=== PATIENT | female | born 1950 | race Caucasian/White ===

== ENCOUNTER → 2017-07-07 | Outpatient (CLI) | payer BC ==
[~2017-07-07] MED LIST: ALPR0.25 PO; ASCO500T16 PO; CALC600T9 PO; CLIN300C10 PO; COEN50CA2 PO; CTP/1 PO; LEVO500T19 PO; LOSA50TA54 PO; MULTTAB58 PO; NIFE60TA55 PO; OMEGCAP2 PO; OXYC1TAB3 PO; VITA400C3 PO
[2017-07-07 11:08] LABS: BLOOD UREA NITROGEN 16 mg/dl (7-18); CALCIUM 9.2 mg/dl (8.5-10.1); CARBON DIOXIDE 28 mmol/L (21-32); GLUCOSE 86 mg/dl (70-99); POTASSIUM 3.4 mmol/L (3.5-5.1); SODIUM 139 mmol/L (136-145)
== END | disposition home or self-care (01) ==
LOC: C.LAB1850 09:48
PROVIDERS: ATTEND Physician Assistant
DX: Z13.9 Encounter for screening, unspecified (principal)

== ENCOUNTER 2025-01-12 19:48 | Inpatient (IN) ==
--- NOTE | 2025-01-12 20:25 | Emergency Department Note ---
Impression & Plan Sepsis, Leg wound, left, Maggot infestation, Acute hyponatremia, Hypokalemia ED Provider Note NAME: MIGUEL BROWN AGE: 74 SEX: Female INFORMANT: Patient ED PROVIDER(S): John Pagan MD CHIEF COMPLAINT: Left leg wound PLAN: Disposition: Admitted Outpatient prescription management: none Referral: None MEDICAL DECISION MAKING: Patient presented because of left leg wound. On initial evaluation she had a maggot infestation. There was fairly significant ulceration/wound to the back of her left leg. Culture was done. Patient had IV established. Blood cultures, lactate and sepsis labs ordered. Patient's blood pressure was adequate. She was found to have a significant elevation of her white blood cell count and mild elevation of her blood lactate. Additional fluids were given. Aggressive fluid resuscitation in light of her normal blood pressure and low sodium was deferred. Repeat lactate showed clearance. Patient was treated with IV Zosyn and daptomycin. Patient had low potassium and this was repleted. Nursing did clean and bandaged the wound removing the infestation. Further evaluation and management in the hospital will be necessary. On reassessment the patient was feeling better. Patient in agreement. [facility], Dr. Slaughter. Patient was evaluated in the ER and admitted for further management Care/management discussed with: electrician manager Level of care consideration(s): After review of the information above and other included data, I feel the patient requires escalation of care to admission Triage Nursing notes: reviewed and agree them. Vital Signs: reviewed and remarkable for tachycardia Additional History obtained from: none Chronic Medical/Social Conditions affecting care: Hypertension Prior/ Outside/ External records reviewed: none Differential Diagnosis: Foreign body, fracture, dislocation, joint compromise, infection, soft tissue injury, tendon injury, vascular compromise, compartment syndrome, as well as other pathologies. Diagnostics, independently interpreted by me: ECG: none Cardiac Monitoring: Cardiac monitoring ordered by me: The patient was placed on continuous cardiac monitoring and observed. It revealed a normal sinus rhythm at 99 beats per minute without ectopy or evidence of dysrhythmia. Medical decision rules: none Imaging studies: CT imaging of the left lower extremity reveals a large ulcerated wound and surrounding inflammatory change. No significant subcutaneous emphysema tracking to suggest a fasciitis. Radiology read is pending at this time. HPI: 74 year old Female arrives for evaluation of left leg wound. This started a few months ago and is worsening. It is located in the posterior aspect of the lower leg. Patient states started off as a blister.. The patient also notes the following associated symptoms, scant bleeding. The patient has been using bandages for relieving factors. Current pain is rated as 7/10. Pt denies LOC, headache, fevers, chills, diaphoresis, visual changes, neck pain, chest pain, breathing difficulties, nausea, vomiting, abdominal pain, back pain, melena, hematochezia, urinary symptoms, numbness, weakness, lymphadenopathy, rash, or other complaints. PAST MEDICAL HISTORY: See Below, hypertension PAST SURGICAL HISTORY: See Below, SOCIAL HISTORY: See Below, non-smoker HOME MEDICATIONS: See Below ALLERGIES: See Below VITALS: See Below PHYSICAL EXAMINATION: GENERAL: Awake, alert, well-appearing, in no distress HENT: Normocephalic, atraumatic. Oropharynx unremarkable. EYES: Normal conjunctiva. Sclera non-icteric. NECK: Inspection normal. Non-tender. Supple. No nuchal rigidity. FROM. No masses. RESPIRATORY: Clear to auscultation. No wheezes. No rales. Normal respiratory effort. CARDIAC: Normal rate. Normal rhythm. No murmurs. No rubs. Extremities warm and well perfused. Pulses equal. No JVD. GI: Soft, non-distended. No tenderness to palpation. No rebound or guarding. No masses. RECTAL: Deferred. MUSCULOSKELETAL: Atraumatic. Chest examination reveals no tenderness. The back is symmetrical on inspection without obvious abnormality. There is no CVA tenderness to palpation. No joint edema. LOWER EXTREMITIES: Calves are equal size bilaterally and non-tender. Right side shows some chronic venous discoloration. There is scarring noted in the back of the right lower extremity. Examination of the left lower extremity reveals a large ulcerated wound with tunneling and maggot infestation present posteriorly. Tender to palpation. NEURO: Normal sensorium. No sensory or motor deficits noted. SKIN: No rash or jaundice noted. PROCEDURES: none CRITICAL CARE: none OBSERVATION NOTE: none Past Med/Surg History Problem List (Updated 01/13/25 @ 01:07 by John Pagan MD) Hypokalemia (Acute) Acute hyponatremia (Acute) Sepsis (Acute) Maggot infestation (Acute) Leg wound, left (Acute) Social History Smoking Status: Never smoker Preferred Language: Italian Feels Safe at Home: Yes Allergies Allergies Allergy/AdvReac Type Severity Reaction Status Date / Time Penicillins Allergy Unknown RASH long Verified 01/12/25 21:16 ago- tolerating Zosyn Home Meds Home Medications Medication Instructions Recorded Confirmed amlodipine 10 mg tablet 10 mg PO DAILY 01/12/25 01/12/25 chlorthalidone 50 mg tablet 50 mg PO DAILY 01/12/25 01/12/25 losartan 100 mg tablet 100 mg PO DAILY 01/12/25 01/12/25 metoprolol succinate 100 mg 100 mg PO DAILY 01/12/25 01/12/25 tablet,extended release 24 hr potassium chloride 20 mEq 20 meq PO BID 01/12/25 01/12/25 tablet,extended release(part/cryst) spironolactone 25 mg tablet 25 mg PO DAILY 01/12/25 01/12/25 Results & Data (ED) Vital Signs Vital Signs - 24 hr 01/12/25 19:49 01/12/25 21:31 01/12/25 21:48 Temperature 36.1 C L Temperature Source Temporal Artery Scan Pulse Rate 111 H 102 H Pulse Rate [Apical] 106 H Pulse Rhythm Regular Pulse Strength Normal Respiratory Rate 18 18 Respiratory Effort / Characteristics Non-Labored Spontaneous Respiratory Depth Normal Respiratory Pattern Regular Blood Pressure 150/74 H Blood Pressure [Left Arm] 125/70 Blood Pressure Mean 99 Blood Pressure Mean [Left Arm] 88 Blood Pressure Position Sitting Pulse Oximetry 99 98 Oxygen Delivery Method Room Air Room Air Sepsis Recent Fever Within 48 Hours No Sepsis New/Unexplained Change in Mental Status N/A Sepsis Action Taken by Nursing No Action Required 01/12/25 23:00 01/13/25 01:00 Temperature Temperature Source Pulse Rate Pulse Rate [Apical] 110 H 99 H Pulse Rhythm Pulse Strength Respiratory Rate 18 18 Respiratory Effort / Characteristics Respiratory Depth Respiratory Pattern Blood Pressure Blood Pressure [Left Arm] 172/81 H 154/91 H Blood Pressure Mean Blood Pressure Mean [Left Arm] 111 112 Blood Pressure Position Pulse Oximetry 98 Oxygen Delivery Method Room Air Sepsis Recent Fever Within 48 Hours Sepsis New/Unexplained Change in Mental Status Sepsis Action Taken by Nursing Laboratory Data 01/12/25 20:33 01/12/25 20:33 Lab Results 01/12/25 01/12/25 01/13/25 Range/Units 20:33 20:50 00:08 WBC 22.51 H (4.8-10.8) K/ul RBC 4.84 (4.20-5.40) M/uL Hgb 14.6 (12.0-16.0) g/dl POC Hgb 15.6 (12.0-16.0) g/dl Hct 41.2 (37.0-47.0) % POC Hct 46 (37-47) % MCV 85.1 (80.0-100.0) fL MCH 30.2 (25.0-34.0) pg MCHC 35.4 (32.0-36.0) g/dL RDW Std Deviation 36.0 L (36.4-46.3) fL RDW Coeff of [place] 11.9 (11.5-14.5) % Plt Count 482 H (130-400) K/uL MPV 8.0 L (9.4-12.4) fL Immature Gran % (Auto) 0.8 % Neut % (Auto) 84.9 % Lymph % (Auto) 7.3 % [place] % (Auto) 6.7 % Eos % (Auto) 0.0 % Baso % (Auto) 0.3 % Neut # (Auto) 19.10 H (1.40-6.50) K/uL Lymph # (Auto) 1.64 (1.20-3.40) K/uL [place] # (Auto) 1.51 H (0.11-0.59) K/uL Eos # (Auto) 0.01 (0.00-0.50) K/uL Baso # (Auto) 0.06 (0.00-0.20) K/uL Immature Gran # (Auto) 0.19 (0.01-0.20) K/uL ESR 58 H (0-30) mm/hr POC Sodium 129 L (135-144) mmol/L Sodium 127 L (136-145) mmol/L POC Potassium 2.8 L (3.3-5.0) mmol/L Potassium 3.0 L (3.5-5.1) mmol/L POC Chloride 92 L (101-112) mmol/L Chloride 91 L (98-107) mmol/L Carbon Dioxide 24 (21-32) mmol/L POC Total CO2 22 L (24-31) mmol/L Anion Gap 12 H (3-11) POC Anion Gap 18.0 (16-25) mmol/L POC BUN 15 (7-18) mg/dl BUN 15 (6-23) mg/dl Creatinine 0.82 (0.6-1.2) mg/dl POC Creatinine 0.8 (0.6-1.3) mg/dl Est Cr Clr Drug Dosing 64.3 ml/min eGFR 75.01 BUN/Creatinine Ratio 18.3 (10-20) Glucose 171 H (70-99(Fasting)) mg/dl POC Glucose (other) 169 H (70-99) mg/dl Lactate 2.6 H* 2.0 (0.4-2.0) mmol/L Calcium 9.6 (8.6-10.3) mg/dl POC Ioniz Calcium [place] 1.09 L (1.12-1.32) mmol/l Magnesium 2.0 (1.7-2.4) mg/dl Total Bilirubin 0.6 (0.2-1.0) mg/dl AST 23 (13-39) U/L ALT 22 (7-52) U/L Alkaline Phosphatase 77 (34-104) U/L C-Reactive Protein 5.35 H (0-0.5) mg/dl Total Protein 7.6 (6.0-8.3) gm/dl Albumin 3.9 (3.4-5.0) gm/dl Globulin 3.7 (2.5-4.0) gm/dl Albumin/Globulin Ratio 1.1 (0.9-2) Procalcitonin 0.24 (0-0.5) ng/ml Administered Medications Sodium Chloride (Nss) 1,000 mls @ 125 mls/hr IV .Q8H CAL Stop: 01/15/25 19:59 Last Admin: 01/12/25 22:33 Dose: 125 mls/hr Documented By: ALBIN Discontinued Medications Sodium Chloride (Nss) 500 mls @ 999 mls/hr IV .Q31M ONE Stop: 01/12/25 20:26 Last Infusion: 01/12/25 23:01 Dose: Infused Documented By: Admin: 01/12/25 21:00 Dose: 999 mls/hr Documented By: STEVE Piperacillin Sod/Tazobactam Sod (Zosyn) 4.5 gm in 100 mls @ 200 mls/hr IV NOW ONE; Protocol Stop: 01/12/25 20:34 Last Infusion: 01/12/25 22:41 Dose: Infused Documented By: Admin: 01/12/25 21:55 Dose: 200 mls/hr Documented By: ALBIN Sodium Chloride (Nss) 1,000 mls @ 999 mls/hr IV .Q1H1M ONE Stop: 01/12/25 21:51 Last Infusion: 01/12/25 22:01 Dose: Infused Documented By: Admin: 01/12/25 21:00 Dose: 999 mls/hr Documented By: STEVE Daptomycin 550 mg/ Syringe 11 mls @ 5.5 mls/min IV NOW ONE; Protocol Stop: 01/12/25 21:06 Last Admin: 01/12/25 23:37 Dose: 5.5 mls/min Documented By: CAITLYN Potassium Chloride (K Joseph / Wtr) 10 meq in 100 mls @ 100 mls/hr IV ONE ONE Stop: 01/12/25 22:32 Last Infusion: 01/12/25 23:34 Dose: Infused Documented By: Admin: 01/12/25 22:31 Dose: 100 mls/hr Documented By: ALBIN Ioversol (Optiray 320 100ml) 93 ml IV ONCE ONE Stop: 01/12/25 21:24 Last Admin: 01/12/25 21:24 Dose: 93 ml Documented By: ANNALISE Potassium Chloride (Potassium Chloride Crtab 20 Meq Tabcr) 60 meq PO NOW STA Stop: 01/12/25 21:46 Last Admin: 01/12/25 22:32 Dose: 60 meq Documented By: ALBIN Discharge Plan Visit Data Chief Complaint: Skin Problem Stated Complaint: SORE ON LT LEG ED Provider: John Pagan Discharge Problem: Sepsis, Leg wound, left, Maggot infestation, Acute hyponatremia, Hypokalemia Patient Disposition: Admitted As Inpatient Condition: Fair Discharge Instructions Interventions: ED Discharge Assessment Last Done: 01/13/25 01:04 Forms Stand Alone Forms: [facility], [facility] Prescriptions Prescriptions: No Action metoprolol succinate 100 mg tablet extended release 24 hr 100 mg PO DAILY chlorthalidone 50 mg tablet 50 mg PO DAILY spironolactone 25 mg tablet 25 mg PO DAILY potassium chloride 20 mEq tablet,ER particles/crystals 20 meq PO BID amlodipine 10 mg tablet 10 mg PO DAILY losartan 100 mg tablet 100 mg PO DAILY Referrals Referrals: Nancy Guadarrama, [Primary Care Provider] -
[2025-01-12 20:46] LABS: Hematocrit (blood only) 41.2 % (37.0-47.0); Hemoglobin 14.6 g/dl (12.0-16.0); Immature Granulocytes # (auto) 0.19 K/uL (0.01-0.20); Immature Granulocytes % (auto) 0.8 %; Mean Corpuscular Hemoglobin 30.2 pg (25.0-34.0); Mean Corpuscular Volume 85.1 fL (80.0-100.0); Platelet Count 482 K/uL (130-400); RDW Standard Deviation 36.0 fL (36.4-46.3); Red Blood Count 4.84 M/uL (4.20-5.40); White Blood Count 22.51 K/ul (4.8-10.8)
[2025-01-12] MEDS: SODIUM CHLORIDE 0.9% 1,000 ML IV ONE (21:00)
[2025-01-12] MEDS: SODIUM CHLORIDE 0.9% 500 ML IV ONE (21:00)
[2025-01-12 21:19] LABS: Alanine Aminotransferase 22.0 U/L (7-52); Albumin Globulin Ratio 1.1 (0.9-2); Alkaline Phosphatase 77.0 U/L (34-104); Anion Gap 12.0 (3-11); Bilirubin,Total 0.6 mg/dl (0.2-1.0); Blood Urea Nitrogen 15.0 mg/dl (6-23); Calcium 9.6 mg/dl (8.6-10.3); Carbon Dioxide 24.0 mmol/L (21-32); Chloride 91.0 mmol/L (98-107); Creatinine Clr Calc Pharmacy 64.3 ml/min; Globulin 3.7 gm/dl (2.5-4.0); Glucose 171.0 mg/dl (70-99(Fasting)); Potassium 3.0 mmol/L (3.5-5.1); Sodium 127.0 mmol/L (136-145); Total Protein 7.6 gm/dl (6.0-8.3)
[2025-01-12] MEDS: OPTIRAY 320 100ml IV ONE (21:24)
[2025-01-12 21:50] LABS: Magnesium 2.0 mg/dl (1.7-2.4)
[2025-01-12] MEDS: PIPERACILLIN/TAZOBACTAM 4.5 GM/100 ML BAG IV ONE (21:55)
[2025-01-12] MEDS: POTASSIUM CHLORIDE / WTR 10 MEQ/100 ML PLCT IV ONE (22:31)
[2025-01-12] MEDS: POTASSIUM CHLORIDE CRTAB 20 MEQ TABCR PO STA (22:32)
[2025-01-12] MEDS: SODIUM CHLORIDE 0.9% 1,000 ML IV SCH (22:33)
[2025-01-12] MEDS: DAPTOmycin 550 MG in SYRINGE 0 ML IV ONE (23:37)
--- NOTE | 2025-01-13 00:19 | History & Physical Report ---
Date of Service January 12, 2025 Assessment & Plan (1) Maggot infestation: Plan: 74-year-old female with past medical history significant for hypertension, resistant hypertension, hypokalemia presents with left leg necrotic wound. Patient says initially she had a Achilles tendon of the left leg and she was using brace. In mid of November she noticed a blister and since then she is not using a brace. She says her pain from her Achilles tendinitis is improved. But last few days she did have pain and having wound in the left lower extremity distal part in the posterior aspect. Seems patient was using bandages at home. As was not getting better she came to the ER. In the ER when the wound was cleaned some maggots were seen. Patient states that after wound was cleaned the pain is much improved. She ambulated in the in the ER for the bathroom. Denies any fevers. No chest pain. No shortness of breath. No headaches. No runny nose or sore throat. No cough. Appetite is okay. No nausea. No abdominal pain. Normal bowel and bladder movements as per patient. Currently resting comfortably and hemodynamically stable. Left leg wound Maggot infestation CT scan: 1. Subcutaneous edema in the calf, greatest posteriorly, consistent wi th cellulitis.2. Cutaneous defect/ulceration posterior lower calf measuring 4 cm transverse by 9 cm craniocaudal. Empiric Dapto and Zosyn N.p.o. IV fluids Surgical consult Hypokalemia Replace Hold chlorthalidone along with potassium supplements Will follow repeat labs Hyponatremia Sodium 127 Holding chlorthalidone Getting fluids Will follow repeat labs Resistant hypertension Continue home amlodipine, losartan, metoprolol succinate and spironolactone Holding chlorthalidone with potassium supplements IV labetalol as needed Will monitor DVT prophylaxis SCDs in the right leg for now Disposition Med/telemetry Full code. (2) Leg wound, left: History of Present Illness Chief Complaint: Left leg necrotic wound Primary Care Provider: Nancy Guadarrama DO 74-year-old female with past medical history significant for hypertension, resistant hypertension, hypokalemia presents with left leg necrotic wound. Patient says initially she had a Achilles tendon of the left leg and she was using brace. In mid of November she noticed a blister and since then she is not using a brace. She says her pain from her Achilles tendinitis is improved. But last few days she did have pain and having wound in the left lower extremity distal part in the posterior aspect. Seems patient was using bandages at home. As was not getting better she came to the ER. In the ER when the wound was cleaned some maggots were seen. Patient states that after wound was cleaned the pain is much improved. She ambulated in the in the ER for the bathroom. Denies any fevers. No chest pain. No shortness of breath. No headaches. No runny nose or sore throat. No cough. Appetite is okay. No nausea. No abdominal pain. Normal bowel and bladder movements as per patient. Currently resting comfortably and hemodynamically stable. Past medical history. As mentioned above Past surgical history. Infection of right calf ankle had skin graft from the right thigh. Social history. No smoking. Alcohol rarely. Family history. Mother had leukemia. Father had diabetes. Allergies Allergy/AdvReac Type Severity Reaction Status Date / Time Penicillins Allergy Unknown RASH long Verified 01/12/25 21:16 ago- tolerating Zosyn Home Medications Medication Instructions Recorded Confirmed Type amlodipine 10 mg tablet 10 mg PO DAILY 01/12/25 01/12/25 History chlorthalidone 50 mg tablet 50 mg PO DAILY 01/12/25 01/12/25 History losartan 100 mg tablet 100 mg PO DAILY 01/12/25 01/12/25 History metoprolol succinate 100 mg 100 mg PO DAILY 01/12/25 01/12/25 History tablet,extended release 24 hr potassium chloride 20 mEq 20 meq PO BID 01/12/25 01/12/25 History tablet,extended release(part/cryst) spironolactone 25 mg tablet 25 mg PO DAILY 01/12/25 01/12/25 History Past Med/Surg History Problem List (Updated 01/13/25 @ 01:07 by John Pagan MD) Hypokalemia (Acute) Acute hyponatremia (Acute) Sepsis (Acute) Maggot infestation (Acute) Leg wound, left (Acute) Social History Smoking Status: Never smoker Hx Alcohol Use: Yes Hx Substance Use: No Preferred Language: Greenlandic Communication Ability: Effective [place] Required: No Beliefs That Will Affect Care: None Current Living Situation: Alone Feels Safe at Home: Yes Assistive Devices: None Review of Systems Review of Systems: All systems reviewed & are unremarkable except as noted in HPI & below Physical Exam Physical Exam: General- Not in distress Head- atraumatic Eyes- PERRL. ENT- oropharynx clear Neck- supple, no JVD. Lungs- clear to auscultation no wheezing or crackles Heart- regular rhythm; no murmur, no gallop. Abdomen- normal bowel sounds, soft, nontender, no distension Extremities- no pretibial edema, Large necrotic wound left distal leg posterior aspect Neuro- alert, oriented PERRL, no facial palsy; no dysarthria; moves extremitie s Results & Data Results & Data Vital Signs (Past 12 Hours) Vital Signs Temp Pulse Pulse Resp BP BP Pulse Ox 01/12/25 23:00 110 H 18 172/81 H 01/12/25 21:48 106 H 18 125/70 98 01/12/25 21:31 102 H 01/12/25 19:49 36.1 C L 111 H 18 150/74 H 99 O2 Del Method 01/12/25 23:00 01/12/25 21:48 Room Air 01/12/25 21:31 01/12/25 19:49 Room Air Diagnostic Findings Laboratory Results WBC 22.51 K/ul (4.8-10.8) H 01/12/25 20:33 RBC 4.84 M/uL (4.20-5.40) 01/12/25 20:33 Hgb 14.6 g/dl (12.0-16.0) 01/12/25 20:33 POC Hgb 15.6 g/dl (12.0-16.0) 01/12/25 20:50 Hct 41.2 % (37.0-47.0) 01/12/25 20: POC Hct 46 % (37-47) 01/12/25 20:50 MCV 85.1 fL (80.0-100.0) 01/12/25 20: MCH 30.2 pg (25.0-34.0) 01/12/25 20: MCHC 35.4 g/dL (32.0-36.0) 01/12/25 20: RDW Std Deviation 36.0 fL (36.4-46.3) L 01/12/25 20: RDW Coeff of [place] 11.9 % (11.5-14.5) 01/12/25: Plt Count 482 K/uL (130-400) H 01/12/25: MPV 8.0 fL (9.4-12.4) L 01/12/25: Immature Gran % (Auto) 0.8 % 01/12/25: Neut % (Auto) 84.9 % 01/12/25: Lymph % (Auto) 7.3 % 01/12/25: [place] % (Auto) 6.7 % 01/12/25: Eos % (Auto) 0.0 % 01/12/25: Baso % (Auto) 0.3 % 01/12/25: Neut # (Auto) 19.10 K/uL (1.40-6.50) H 01/12/25 20: Lymph # (Auto) 1.64 K/uL (1.20-3.40) 01/12/25 20: [place] # (Auto) 1.51 K/uL (0.11-0.59) H 01/12/25 20: Eos # (Auto) 0.01 K/uL (0.00-0.50) 01/12/25: Baso # (Auto) 0.06 K/uL (0.00-0.20) 01/12/25: Immature Gran # (Auto) 0.19 K/uL (0.01-0.20) 01/12/25: ESR 58 mm/hr (0-30) H 01/12/25: POC Sodium 129 mmol/L (135-144) L 01/12/25 20: Sodium 127 mmol/L (136-145) L 01/12/25: POC Potassium 2.8 mmol/L (3.3-5.0) L 01/12/25 20: Potassium 3.0 mmol/L (3.5-5.1) L 01/12/25 20: POC Chloride 92 mmol/L (101-112) L 01/12/25 20: Chloride 91 mmol/L (98-107) L 01/12/25: Carbon Dioxide 24 mmol/L (21-32) 08/02/25 20:33 POC Total CO2 22 mmol/L (24-31) L 01/12/25 20:50 Anion Gap 12 (3-11) H 01/12/25 20:33 POC Anion Gap 18.0 mmol/L (16-25) 01/12/25 20:50 POC BUN 15 mg/dl (7-18) 01/12/25 20:50 BUN 15 mg/dl (6-23) 01/12/25 20:33 Creatinine 0.82 mg/dl (0.6-1.2) 01/12/25 20:33 POC Creatinine 0.8 mg/dl (0.6-1.3) 01/12/25 20:50 Est Cr Clr Drug Dosing 64.3 ml/min 01/12/25 20:33 eGFR 75.01 01/12/25 20:33 BUN/Creatinine Ratio 18.3 (10-20) 01/12/25 20:33 Glucose 171 mg/dl (70-99(Fasting)) H 01/12/25 20:33 POC Glucose (other) 169 mg/dl (70-99) H 01/12/25 20:50 Lactate 2.0 mmol/L (0.4-2.0) 01/13/25 00:08 Calcium 9.6 mg/dl (8.6-10.3) 01/12/25 20:33 POC Ioniz Calcium [place] 1.09 mmol/l (1.12-1.32) L 01/12/25 20:50 Magnesium 2.0 mg/dl (1.7-2.4) 01/12/25 20:33 Total Bilirubin 0.6 mg/dl (0.2-1.0) 01/12/25 20:33 AST 23 U/L (13-39) 01/12/25 20:33 ALT 22 U/L (7-52) 01/12/25 20:33 Alkaline Phosphatase 77 U/L (34-104) 01/12/25 20:33 C-Reactive Protein 5.35 mg/dl (0-0.5) H 01/12/25 20:33 Total Protein 7.6 gm/dl (6.0-8.3) 01/12/25 20:33 Albumin 3.9 gm/dl (3.4-5.0) 01/12/25 20:33 Globulin 3.7 gm/dl (2.5-4.0) 01/12/25 20:33 Albumin/Globulin Ratio 1.1 (0.9-2) 01/12/25 20:33 Procalcitonin 0.24 ng/ml (0-0.5) 01/12/25 20:33 Code Status & VTE Plan VTE Prophylaxis Plan VTE Prophylaxis will be ordered: Yes
[2025-01-13] MEDS ORDERED: POLYETHYLENE (MIRALAX) 17 GM PACK PO PRN (02:26)
[2025-01-13] MEDS ORDERED: LABETALOL HCL IV 5 MG/ML 20ML IV PRN (02:26)
[2025-01-13] MEDS ORDERED: NITROGLYCERIN SL 0.4 MG/TAB TAB SL PRN (02:26)
[2025-01-13] MEDS ORDERED: SODIUM CHLORIDE 0.9% 1,000 ML IV SCH (02:26)
--- NOTE | 2025-01-13 03:08 | CT Scan Report ---
Exam(s): CT EXTREMITY LEFT LOWER With Contrast IV Amt: 93ml EXAM: CT Left Lower Extremity With Intravenous Contrast CLINICAL HISTORY: Reason for exam: Posterior wound with maggots. TECHNIQUE: Axial computed tomography images of the left lower extremity with intravenous contrast. CTDI is 6.03 mGy and DLP is 291.24 mGy-cm. Automated exposure control was utilized for the study. A dose lowering technique was utilized adhering to the principles of ALARA. CONTRAST: Patient received 93ml of IV contrast COMPARISON: No relevant prior studies available. FINDINGS: Bones/joints: No acute fracture or dislocation. Soft tissues: Cutaneous defect/ulceration posterior lower calf measuring 4 cm transverse by 9 cm craniocaudal. Subcutaneous edema in the calf, greatest posteriorly, consistent with cellulitis. No tracking soft tissue gas to suggest necrotizing infection. No fluid collection to suggest abscess. IMPRESSION: 1. Subcutaneous edema in the calf, greatest posteriorly, consistent with cellulitis. 2. Cutaneous defect/ulceration posterior lower calf measuring 4 cm transverse by 9 cm craniocaudal. Electronically signed by: Lance Roberto M.D. 01/13/25 03:07 AM
[2025-01-13] MEDS: PIPERACILLIN/TAZOBACTAM 4.5 GM/100 ML BAG IV SCH (04:38)
--- NOTE | 2025-01-13 07:58 | Hospitalist Progress Note ---
Date of Service January 13, 2025 Assessment & Plan (1) Maggot infestation: Plan: 74-year-old female with past medical history significant for hypertension, resistant hypertension, hypokalemia presents with left leg necrotic wound. Patient says initially she had a Achilles tendon of the left leg and she was using brace. In mid of November she noticed a blister and since then she is not using a brace. She says her pain from her Achilles tendinitis is improved. But last few days she did have pain and wound in the left lower extremity distal part in the posterior aspect. Seems patient was using bandages at home. This was not getting better and she came to the ER. In the ER when the wound was cleaned some maggots were seen. Patient states that after wound was cleaned the pain is much improved. She ambulated in the in the ER for the bathroom. Denies any fevers. No chest pain. No shortness of breath. No headaches. No runny nose or sore throat. No cough. Appetite is okay. No nausea. No abdominal pain. Normal bowel and bladder movements as per patient. Patient was admitted for further management to the hospital Infected left leg wound Maggot infestation Sepsis POA Patient presents to the hospital with left leg wound that developed after using brace on her leg. Found to have maggots Leukocytosis present on admission Lactate elevated on admission; downtrended CT shows subcutaneous edema in the left consistent with cellulitis; cutaneous defect/ulceration in lower calf measuring 4 cm transverse by 9 cm craniocaudal Continue on current antibiotics daptomycin and Zosyn Obtain wound care consult for further management. General surgery consulted on admission for comanagement; appreciate any additional recommendation regarding debridement Hypokalemia- Repleted Hold chlorthalidone along with potassium supplements Will follow repeat labs Hyponatremia Sodium 127 Likely secondary to chlorthalidone; plan to hold it at discharge given hyponatremia, hypokalemia serum sodium increased to 137; will give 1L of D5 and repeat BMP Resistant hypertension Continue home amlodipine, losartan, metoprolol succinate and spironolactone Holding chlorthalidone with potassium supplements IV labetalol as needed Will monitor DVT prophylaxis SCDs in the right leg for now Disposition Med/telemetry Full code. Time spent evaluating patient, direct bedside care, chart review, placing orders, interpretation of diagnostic studies, discussion with consultants, patient, and family members, as well as other required patient management activities is 50 minutes Please note the above document was generated using voice recognition software. It may contain grammatical, syntax or spelling errors. Any formal questions or concerns about the content, text or information contained within the body of this dictation should be directly addressed to the provider for clarification (2) Leg wound, left: Admission and Anticipated Discharge Date Admission Date: January 12, 2025 Subjective Patient seen and examined at bedside. She is comfortable; not in any distress. She is afebrile, blood pressure within normal range and saturating well on room air. Pain is well-controlled Review of Systems Review of Systems: All systems reviewed & are unremarkable except as noted in Subjective Physical Exam Physical Exam: General- Not in distress Head- atraumatic Eyes- PERRL. ENT- oropharynx clear Neck- supple, no JVD. Lungs- clear to auscultation no wheezing or crackles Heart- regular rhythm; no murmur, no gallop. Abdomen- normal bowel sounds, soft, nontender, no distension Extremities- no pretibial edema, Large wound left distal leg posterior aspect with foul smelling discharge. Neuro- alert, oriented PERRL, no facial palsy; no dysarthria; moves extremities Results & Data Results & Data Vital Signs (Past 12 Hours) Vital Signs Temp Pulse Pulse Pulse Resp BP Pulse Ox 01/13/25 07:49 36.5 C 92 H 16 153/74 H 96 01/13/25 07:40 96 H 01/13/25 02:47 36.9 C 102 H 18 169/84 H 96 01/13/25 01:50 102 H 01/13/25 01:00 99 H 18 154/91 H 98 01/12/25 23:00 110 H 18 172/81 H 01/12/25 21:48 106 H 18 125/70 98 01/12/25 21:31 102 H O2 Del Method 01/13/25 07:49 Room Air 01/13/25 07:40 01/13/25 02:47 Room Air 01/13/25 01:50 01/13/25 01:00 Room Air 01/12/25 23:00 01/12/25 21:48 Room Air 01/12/25 21:31
[2025-01-13 09:09] LABS: Anion Gap 6.0 (3-11); Blood Urea Nitrogen 9.0 mg/dl (6-23); Calcium 8.2 mg/dl (8.6-10.3); Carbon Dioxide 27.0 mmol/L (21-32); Chloride 104.0 mmol/L (98-107); Glucose 106.0 mg/dl (70-99(Fasting)); Potassium 3.5 mmol/L (3.5-5.1); Sodium 137.0 mmol/L (136-145)
[2025-01-13 09:19] LABS: Creatinine Clr Calc Pharmacy 72.8 ml/min
[2025-01-13] MEDS: DEXTROSE 5% 1,000 ML IV SCH (10:29)
[2025-01-13 10:50] LABS: A calco-baum cmplx NotReported Not Detected (NotDetected); Bact fragilis Not Reported Not Detected (NotDetected); Blood Culture Id Panel See PCR Comment (NotDetected); C auris Not Reported Not Detected (NotDetected); CTX-M Resistant Gene Not Detected (NotDetected); Calbicans Not Reported Not Detected (NotDetected); Candida glabrata Not Reported Not Detected (NotDetected); Candida krusei Not Reported Not Detected (NotDetected); Cneoformans/gatti Not Reported Not Detected (NotDetected); Cparapsilosis Not Reported Not Detected (NotDetected); Ctropicalis Not Reported Not Detected (NotDetected); E cloacae compx Not Reported Not Detected (NotDetected); Efaecalis Not Reported Not Detected (NotDetected); Efaecium Not Reported Not Detected (NotDetected); Enterobacterales Not Reported DETECTED (NotDetected); Escherichia coli Not Reported Not Detected (NotDetected); H influenzae Not Reported Not Detected (NotDetected); IMP Resistant Gene Not Detected (NotDetected); K aerogenes Not Reported Not Detected (NotDetected); KPC Resistant Gene Not Detected (NotDetected); Koxytoca Not Reported Not Detected (NotDetected); Kpneumoniae grp Not Reported Not Detected (NotDetected); Lmonocyt Not Reported Not Detected (NotDetected); N meningitidis Not Reported Not Detected (NotDetected); NDM Resistant Gene Not Detected (NotDetected); OXA 48 Like Resistant Gene Not Detected (NotDetected); P aeruginosa Not Reported Not Detected (NotDetected); Proteus spp Not Reported Not Detected (NotDetected); Salmonella spp Not Reported Not Detected (NotDetected); Staph lugdunensis Not Reported Not Detected (NotDetected); Staph spp. Not Reported Not Detected (NotDetected); Staphaureus Not Reported Not Detected (NotDetected); Staphepi Not Reported Not Detected (NotDetected); Stenmaltophilia Not Reported Not Detected (NotDetected); Strep agal(GrpB) Not Reported Not Detected (NotDetected); Strep pneum Not Reported Not Detected (NotDetected); Strep pyog (GrpA) Not Reported Not Detected (NotDetected); Strep spp Not Reported Not Detected (NotDetected); VIM Resistant Gene Not Detected (NotDetected)
[2025-01-13] MEDS: METOPROLOL SUCC 50MG EXT REL TAB PO SCH (10:54)
[2025-01-13] MEDS: LOSARTAN POTASSIUM 50 MG TAB PO SCH (10:54)
[2025-01-13] MEDS: SPIRONOLACTONE 25 MG TAB PO SCH (10:55)
[2025-01-13] MEDS: ACETAMINOPHEN 325 MG TAB PO PRN (10:57)
[2025-01-13] MEDS: POTASSIUM CHLORIDE CRTAB 20 MEQ TABCR PO SCH (10:57)
[2025-01-13 11:12] LABS: Enterobacterales DETECTED (NotDetected)
--- NOTE | 2025-01-13 12:25 | Orthopedic Consultation ---
Date of Consultation January 13, 2025 Assessment & Plan (1) Leg wound, left: (2) Maggot infestation: (3) Hypokalemia: (4) Acute hyponatremia: Plan 74-year-old female presents the hospital last evening with infected wound of her left lower extremity. Upon evaluation emergency department she was noted to have maggots infesting the wound and as such this was cleansed. She was started on antibiotics and admitted to the hospital. Initially, general surgery was consulted but they recommended orthopedic evaluation. Patient's wound is quite large on the posterior aspect of her calf at the musculotendinous junction of the heel cord. There are necrotic appearing edges to this wound. Upon presentation last evening, the patient was noted to have an elevated heart rate and white blood cell count and as such met SIRS criteria. She has been afebrile. On physical evaluation, the patient appears in no acute distress and does not appear toxic at all. She does not have any general malaise, fevers, chills. I had a long discussion the patient regarding her current wound. We discussed in great detail the pathoanatomy, pathophysiology, treatment options. I do think that this patient's wound being after a very small injury from her brace rubbing and causing a blister is a concerning feature with regards to the patient's lower extremity blood flow. Patient notes that she does not have diabetes, however I am concerned about her vascular status. Prior to me even discussing treatment options, the patient notes that she refuses to have a wound VAC and is very hopeful to avoid any surgical management. I did discuss with her in great detail that surgical management may be necessary if this wound fails to show significant improvement rapidly. I also discussed with her that based on the size of this wound and the edge necrosis, I am concerned about its capacity to heal, and I do think that the patient is at a very high risk of requiring amputation. She was distraught to hear this and notes that she is very concerned about requiring an amputation. In light of the patient's wishes, I do believe that local wound care and very cautious observation at this time is reasonable because although she does meet SIRS criteria, she is nontoxic-appearing and not floridly septic. I will order wound care/dressing changes to include Silvadene and gentle compression. Additionally, this wound should be cleaned daily. Finally, I will place a consult to podiatry, Dr. Anneliese Andrea as foot and ankle wound care is his area of expertise for him to see and evaluate the patient. History of Present Illness Reason for Consultation: Left leg wound Attending Physician: Blake Clancy MD History of Present Illness 74-year-old female with past medical history significant for hypertension, resistant hypertension, hypokalemia presents with left leg necrotic wound. Patient says initially she had a Achilles tendon injury of the left leg and she was using a nrce brace. In mid of November she noticed a blister and since then she is not been using a brace. She says her pain from her Achilles tendinitis is improved. But last few days she did have pain at the site of the wound wound in the left lower extremity. Seems patient was using bandages at home. As was not getting better she came to the ER. In the ER when the wound was cleaned some maggots were seen. Patient states that after wound was cleaned the pain is much improved. She ambulated in the in the ER for the bathroom. Denies any fevers. No chest pain. No shortness of breath. No headaches. No runny nose or sore throat. No cough. Appetite is okay. No nausea. No abdominal pain. Normal bowel and bladder movements as per patient. Currently resting comfortably and hemodynamically stable. Patient notes that she feels better since being in the hospital. She denies any additional wounds. She denies history of diabetes. She denies any known history of vascular compromise. Allergies Allergy/AdvReac Type Severity Reaction Status Date / Time Penicillins Allergy Unknown RASH long Verified 01/12/25 21:16 ago- tolerating Zosyn Home Medications Medication Instructions Recorded Confirmed Type amlodipine 10 mg tablet 10 mg PO DAILY 01/12/25 01/12/25 History chlorthalidone 50 mg tablet 50 mg PO DAILY 01/12/25 01/12/25 History losartan 100 mg tablet 100 mg PO DAILY 01/12/25 01/12/25 History metoprolol succinate 100 mg 100 mg PO DAILY 01/12/25 01/12/25 History tablet,extended release 24 hr potassium chloride 20 mEq 20 meq PO BID 01/12/25 01/12/25 History tablet,extended release(part/cryst) spironolactone 25 mg tablet 25 mg PO DAILY 01/12/25 01/12/25 History Patient History Social History Smoking Status: Never smoker Hx Alcohol Use: Yes Hx Substance Use: No Preferred Language: [place] Communication Ability: Effective Flight Paramedic Required: No Beliefs That Will Affect Care: None Current Living Situation: Alone Feels Safe at Home: Yes Assistive Devices: None Review of Systems Review of Systems: All systems reviewed & are unremarkable except as noted in HPI & below Physical Exam Physical Exam: On physical examination of the patient's left lower extremity, she has a necrotic and purulent appearing wound measuring 8 cm x 4 cm on the posterior aspect of her calf at the musculotendinous junction of the heel cord. There is mild surrounding erythema. There are necrotic skin edges. Results & Data Vital Signs (Past 12 Hours) Vital Signs Temp Pulse Pulse Pulse Resp BP Pulse Ox 01/13/25 11:13 36.6 C 96 H 18 161/76 H 96 01/13/25 07:49 36.5 C 92 H 16 153/74 H 96 01/13/25 07:40 96 H 01/13/25 02:47 36.9 C 102 H 18 169/84 H 96 01/13/25 01:50 102 H 01/13/25 01:00 99 H 18 154/91 H 98 O2 Del Method 01/13/25 11:13 Room Air 01/13/25 07:49 Room Air 01/13/25 07:40 01/13/25 02:47 Room Air 01/13/25 01:50 01/13/25 01:00 Room Air Diagnostic Findings CT scan of the lower extremity personally interpreted and reviewed. Demonstr ates a wound in the posterior aspect of the calf with surrounding findings consistent with cellulitis without appreciable abscess or soft tissue gas.
[2025-01-13 15:33] LABS: Anion Gap 7.0 (3-11); Blood Urea Nitrogen 12.0 mg/dl (6-23); Calcium 8.2 mg/dl (8.6-10.3); Carbon Dioxide 25.0 mmol/L (21-32); Chloride 100.0 mmol/L (98-107); Creatinine Clr Calc Pharmacy 45.2 ml/min; Glucose 132.0 mg/dl (70-99(Fasting)); Potassium 3.7 mmol/L (3.5-5.1); Sodium 132.0 mmol/L (136-145)
[2025-01-13 17:55] LABS: A calco-baum cmplx NotReported Not Detected (NotDetected); Bact fragilis Not Reported Not Detected (NotDetected); Blood Culture Id Panel See PCR Comment (NotDetected); C auris Not Reported Not Detected (NotDetected); Calbicans Not Reported Not Detected (NotDetected); Candida glabrata Not Reported Not Detected (NotDetected); Candida krusei Not Reported Not Detected (NotDetected); Cneoformans/gatti Not Reported Not Detected (NotDetected); Cparapsilosis Not Reported Not Detected (NotDetected); Ctropicalis Not Reported Not Detected (NotDetected); E cloacae compx Not Reported Not Detected (NotDetected); Efaecalis Not Reported Not Detected (NotDetected); Efaecium Not Reported Not Detected (NotDetected); Enterobacterales Not Reported Not Detected (NotDetected); Escherichia coli Not Reported Not Detected (NotDetected); H influenzae Not Reported Not Detected (NotDetected); K aerogenes Not Reported Not Detected (NotDetected); Koxytoca Not Reported Not Detected (NotDetected); Kpneumoniae grp Not Reported Not Detected (NotDetected); Lmonocyt Not Reported Not Detected (NotDetected); N meningitidis Not Reported Not Detected (NotDetected); P aeruginosa Not Reported Not Detected (NotDetected); Proteus spp Not Reported Not Detected (NotDetected); Salmonella spp Not Reported Not Detected (NotDetected); Staph lugdunensis Not Reported Not Detected (NotDetected); Staph spp. Not Reported DETECTED (NotDetected); Staphaureus Not Reported Not Detected (NotDetected); Staphepi Not Reported Not Detected (NotDetected); Stenmaltophilia Not Reported Not Detected (NotDetected); Strep agal(GrpB) Not Reported Not Detected (NotDetected); Strep pneum Not Reported Not Detected (NotDetected); Strep pyog (GrpA) Not Reported Not Detected (NotDetected); Strep spp Not Reported Not Detected (NotDetected)
[2025-01-13] MEDS: DAPTOmycin 600 MG in SYRINGE 0 ML IV SCH (21:05)
[2025-01-13 21:37] LABS: Staphylococcus spp. DETECTED (NotDetected)
[2025-01-14] MEDS: SILVER SULFADIAZINE 1% CR 400 GM JAR EXT SCH (03:33)
--- NOTE | 2025-01-14 04:19 | Ultrasound Report ---
EXAM: US arterial duplex LE LT CLINICAL HISTORY: Ulceration left leg with necrotic tissue TECHNIQUE: Static ultrasound images with Grayscale and Doppler of left lower extremity were submitted for review. COMPARISON: none FINDINGS: Common femoral artery (cm/s) SFA (prox)(cm/s) SFA (mid)(cm/s) SFA (distal)(cm/s) Popliteal artery (cm/s) Posterior tibial artery (cm/s) Peroneal artery (cm/s) Anterior tibial artery (cm/s) Dorsalis paedia artery (cm/s) Left 154 116 163 115 146 139 219 216 37 Diffuse mild atherosclerotic changes noted through out lower limb arterial system. Multiple areas of increased peak systolic velocity with a PSV of ~219cm/s in peroneal trunck, 201cm/s in proximal peroneal artery and 216cm/s in mid anterior tibial artery Low velocity monophasic flow noted in anterior tibial artery. Features suggestive of peripheral arterial disease with significant stenosis in left leg arteries. Advised clinical correlation and further evaluation with CT angiogram. IMPRESSION: Diffuse mild atherosclerotic changes noted through out lower limb arterial system. Multiple areas of increased peak systolic velocity with a PSV of ~219cm/s in peroneal trunck, 201cm/s in proximal peroneal artery and 216cm/s in mid anterior tibial artery- could represent short segment stenosis Low velocity monophasic flow noted in anterior tibial artery. Electronically signed by Dimas Long 01-14-2025 04:18 AM
[2025-01-14 06:41] LABS: Hematocrit (blood only) 36.6 % (37.0-47.0); Hemoglobin 12.4 g/dl (12.0-16.0); Immature Granulocytes # (auto) 0.13 K/uL (0.01-0.20); Immature Granulocytes % (auto) 0.8 %; Mean Corpuscular Hemoglobin 30.2 pg (25.0-34.0); Mean Corpuscular Volume 89.3 fL (80.0-100.0); Platelet Count 351 K/uL (130-400); RDW Standard Deviation 40.2 fL (36.4-46.3); Red Blood Count 4.10 M/uL (4.20-5.40); White Blood Count 16.00 K/ul (4.8-10.8)
[2025-01-14 07:07] LABS: Anion Gap 5.0 (3-11); Blood Urea Nitrogen 13.0 mg/dl (6-23); Calcium 8.3 mg/dl (8.6-10.3); Carbon Dioxide 30.0 mmol/L (21-32); Chloride 102.0 mmol/L (98-107); Creatinine Clr Calc Pharmacy 68.5 ml/min; Glucose 112.0 mg/dl (70-99(Fasting)); Potassium 3.6 mmol/L (3.5-5.1); Sodium 137.0 mmol/L (136-145)
--- NOTE | 2025-01-14 08:11 | Hospitalist Progress Note ---
Date of Service January 14, 2025 Assessment & Plan (1) Maggot infestation: Plan: 74-year-old female with past medical history significant for hypertension, resistant hypertension, hypokalemia presents with left leg necrotic wound. Patient says initially she had a Achilles tendon of the left leg and she was using brace. In mid of November she noticed a blister and since then she is not using a brace. She says her pain from her Achilles tendinitis is improved. But last few days she did have pain and wound in the left lower extremity distal part in the posterior aspect. Seems patient was using bandages at home. This was not getting better and she came to the ER. In the ER when the wound was cleaned some maggots were seen. Patient states that after wound was cleaned the pain is much improved. She ambulated in the in the ER for the bathroom. Denies any fevers. No chest pain. No shortness of breath. No headaches. No runny nose or sore throat. No cough. Appetite is okay. No nausea. No abdominal pain. Normal bowel and bladder movements as per patient. Patient was admitted for further management to the hospital Infected left leg wound Maggot infestation Sepsis POA Gram -ve bacilli in blood cx Gram positive cocci in blood cx Patient presents to the hospital with left leg wound that developed after using brace on her leg. Found to have maggots Leukocytosis present on admission Lactate elevated on admission; downtrended CT shows subcutaneous edema in the left consistent with cellulitis; cutaneous defect/ulceration in lower calf measuring 4 cm transverse by 9 cm craniocaudal Blood culture from 01/31 out of 4 positive for gram-negative bacilli, 1 out of 4 positive for gram-positive cocci in clusters. Wound cultureProvidencia stuartii Plan for debridement by podiatry today Continue on antibiotics; follow-up on final culture and sensitivity Will consult infectious disease after culture and sensitivity are finalized. Hypokalemia- Repleted Hold chlorthalidone along with potassium supplements Hyponatremia Sodium 127 Likely secondary to chlorthalidone; plan to hold it at discharge given hyponatremia, hypokalemia serum sodium increased to 137; downtrended to 132 after D5 and normalized Resistant hypertension Continue home amlodipine, losartan, metoprolol succinate and spironolactone Holding chlorthalidone with potassium supplements Will monitor DVT prophylaxis SCDs in the right leg for now Disposition Med/telemetry Full code. Time spent evaluating patient, direct bedside care, chart review, placing orders, interpretation of diagnostic studies, discussion with consultants, patient, and family members, as well as other required patient management activities is 50 minutes Please note the above document was generated using voice recognition software. It may contain grammatical, syntax or spelling errors. Any formal questions or concerns about the content, text or information contained within the body of this dictation should be directly addressed to the provider for clarification (2) Leg wound, left: Admission and Anticipated Discharge Date Admission Date: January 12, 2025 Subjective Patient seen and examined at bedside. She is comfortable; not in distress. Reports that the pain is well-controlled. She was afebrile overnight. Review of Systems Review of Systems: All systems reviewed & are unremarkable except as noted in Subjective Physical Exam Physical Exam: General- Not in distress Head- atraumatic Eyes- PERRL. ENT- oropharynx clear Neck- supple, no JVD. Lungs- clear to auscultation no wheezing or crackles Heart- regular rhythm; no murmur, no gallop. Abdomen- normal bowel sounds, soft, nontender, no distension Extremities- no pretibial edema, Large wound left distal leg posterior aspect with foul smelling discharge. Neuro- alert, oriented PERRL, no facial palsy; no dysarthria; moves extremities Results & Data Results & Data Vital Signs (Past 12 Hours) Vital Signs Temp Pulse Pulse Resp BP BP Pulse Ox 01/14/25 07:24 37 C 92 H 16 129/61 93 01/14/25 05:42 85 01/14/25 04:09 36.9 C 80 18 156/50 H 96 01/13/25 23:38 99 H 01/13/25 23:35 36.3 C L 87 18 155/73 H 95 O2 Del Method 01/14/25 07:24 Room Air 01/14/25 05:42 01/14/25 04:09 Room Air 01/13/25 23:38 01/13/25 23:35 Room Air
[2025-01-14] MEDS: LORATADINE 10 MG TAB PO SCH (09:27)
[2025-01-14] MEDS: LACTATED RINGER'S 1,000 ML IV SCH (11:31)
[2025-01-14] MEDS ORDERED: ONDANSETRON INJ 2 MG/ML 2 ML VIAL ONE (11:39)
[2025-01-14] MEDS ORDERED: PROPOFOL IV EMULSION 10 MG/ML 20 ML VIAL IV ONE (11:39)
[2025-01-14] MEDS ORDERED: LIDOCAINE 2% 2 ML VIAL/AMP(20MG/ML) INFIL ONE (11:39)
--- NOTE | 2025-01-14 11:53 | Orthopedic Progress Note ---
Date of Service January 14, 2025 Assessment & Plan (1) Leg wound, left: (2) Maggot infestation: (3) Hypokalemia: (4) Acute hyponatremia: Plan Patient was seen and evaluated this morning with Dr. Coy. After discussion with Dr. Coy, he plans to take the patient to the operating room this afternoon for irrigation and debridement potentially with application of wound VAC. At this point orthopedics will sign off and Dr. Coy will continue the patient's care. Admission and Anticipated Discharge Date Admission Date: January 12, 2025 Subjective Patient seen and examined at bedside with Dr Coy. She is comfortable; not in distress. Reports that the pain is well-controlled. She was afebrile overnight. Physical Exam Physical Exam: On physical examination of the patient's left lower extremity, she has a necrotic and purulent appearing wound measuring 8 cm x 4 cm on the posterior aspect of her calf at the musculotendinous junction of the heel cord. There is mild surrounding erythema. There are necrotic skin edges. Results & Data Vital Signs (Past 12 Hours) Vital Signs Temp Pulse Pulse Resp BP BP Pulse Ox 01/14/25 11:22 36.7 C 93 H 18 150/68 H 95 01/14/25 07:24 37 C 92 H 16 129/61 93 01/14/25 05:42 85 01/14/25 04:09 36.9 C 80 18 156/50 H 96 O2 Del Method 01/14/25 11:22 Room Air 01/14/25 07:24 Room Air 01/14/25 05:42 01/14/25 04:09 Room Air
--- NOTE | 2025-01-14 11:59 | Anesthesiology Consultation ---
Date of Service January 14, 2025 Assessment & Plan ASA ASA2 Proposed Anesthesia Anesthesia Type: General Risk / Benefits Reviewed With: PT / POA / Parent / Guardian, Accepts Plan and Informed Consent Obtained History Surgery Operation Date: 01/14/25 08:20 Proposed Procedures p Left Leg Debridement - Olivier Coy DPM Height/Weight Height: 5 ft 6 in Weight: 86.8 kg Allergies Allergy/AdvReac Type Severity Reaction Status Date / Time Penicillins Allergy Unknown RASH long Verified 01/14/25 11:21 ago- tolerating Zosyn Medications Home Medications Medication Instructions Recorded Confirmed Last Taken amlodipine 10 mg tablet 10 mg PO DAILY 01/12/25 01/12/25 01/12/25 chlorthalidone 50 mg tablet 50 mg PO DAILY 01/12/25 01/12/25 01/12/25 losartan 100 mg tablet 100 mg PO DAILY 01/12/25 01/12/25 01/12/25 metoprolol succinate 100 mg 100 mg PO DAILY 01/12/25 01/12/25 01/12/25 tablet,extended release 24 hr potassium chloride 20 mEq 20 meq PO BID 01/12/25 01/12/25 01/12/25 08:00 tablet,extended release(part/cryst) spironolactone 25 mg tablet 25 mg PO DAILY 01/12/25 01/12/25 01/12/25 Active Medications Generic Name Dose Route Start Last Admin Trade Name Viniq PRN Reason Stop Dose Admin Acetaminophen 650 mg 01/13/25 02:26 01/14/25 10:20 Acetaminophen 325 Mg Tab PO 02/12/25 02:25 650 mg Q4H PRN Administration Pain or Fever Amlodipine Besylate 10 mg 01/13/25 09:00 01/14/25 08:44 Amlodipine Besylate 5 Mg Tab PO 02/12/25 08:59 10 mg DAILY CAL Administration Piperacillin Sod/Tazobactam Sod 4.5 gm in 100 mls @ 25 mls/hr 01/13/25 04:00 01/14/25 09:53 Zosyn IV 01/20/25 03:59 Infused Q8H CAL Infusion Protocol Daptomycin 600 mg/ Syringe 12 mls @ 6 mls/min 01/13/25 21:00 01/13/25 21:05 IV 01/20/25 20:59 6 mls/min Q24H CAL Administration Protocol Lactated Ringer's 1,000 mls @ 15 mls/hr 01/14/25 11:30 01/14/25 11:31 Lr IV 01/17/25 11:29 15 mls/hr .Q24H CAL Administration Loratadine 10 mg 01/14/25 09:00 01/14/25 09:27 Loratadine 10 Mg Tab PO 02/13/25 08:59 10 mg QAM CAL Administration Losartan Potassium 100 mg 01/13/25 09:00 01/14/25 08:44 Losartan Potassium 50 Mg Tab PO 02/12/25 08:59 100 mg DAILY CAL Administration Metoprolol Succinate 100 mg 01/13/25 09:00 01/14/25 08:43 Metoprolol Succ 50mg Ext Rel Tab PO 02/12/25 08:59 100 mg DAILY CAL Administration Potassium Chloride 40 meq 01/13/25 10:45 01/14/25 08:41 Potassium Chloride Crtab 20 Meq Tabcr PO 02/12/25 10:44 40 meq BID CAL Administration Silver Sulfadiazine 1 appln 01/14/25 01:15 01/14/25 09:27 Silver Sulfadiazine 1% Cr 400 Gm Jar EXT 02/13/25 01:14 1 appln BID CAL Administration Spironolactone 25 mg 01/13/25 09:00 01/14/25 08:42 Spironolactone 25 Mg Tab PO 02/12/25 08:59 25 mg DAILY CAL Administration NPO Date Last Intake of Fluids: 01/13/25 Time Last Intake of Fluids: 23:00 Date Last Intake of Solids: 01/13/25 Time Last Intake of Solids: 22:00 Exercise / Class Metabolic Activity II 4-5 Yardwork/Stairs/Walk up hill Past Anesthesia History No Hx of Anesthesia Complications and No Family Hx of Anesthesia Complications History of PONV No Hx of PONV and No Hx of Motion Sickness Social History Smoking Status: Never smoker Hx Alcohol Use: Yes alcohol intake frequency: holidays/special occasions only Hx Substance Use: No Physical Exam Vital Signs Last Vital Signs Temp 36.7 C 01/14/25 11:22 Pulse 93 H 01/14/25 11:22 Resp 18 01/14/25 11:22 BP 150/68 H 01/14/25 11:22 Pulse Ox 95 01/14/25 11:22 O2 Del Method Room Air 01/14/25 11:22 Constitutional no acute distress ENMT Mouth: no dentition abnormality Thyromental Distance: > or= 3.5 Finger Breadths Mallampati Class: III Neck normal visual inspection Respiratory normal respiratory effort; no respiratory distress Auscultation: lungs clear to auscultation bilaterally Cardiovascular Rate/Rhythm: regular rate and regular rhythm Heart Sounds: no murmur Musculoskeletal Spine: normal cervical ROM Psychiatric Orientation: alert and oriented x 3 Testing Laboratory Results 01/14/25 06:28 01/14/25 06:28 01/12/25 20:33 Aerobic Blood Culture - Preliminary Blood Gram negative bacilli Staphylococcus hominis Anaerobic Blood Culture - Preliminary Providencia stuartii 01/12/25 20:55 Gram Stain - Final Leg Aerobic and Anaerobic Culture - Preliminary Providencia stuartii 01/12/25 21:37 Aerobic Blood Culture - Preliminary Blood No growth in Aerobic bottle after 24 hours. Anaerobic Blood Culture - Final Day of Procedure Evaluation. Date of Surgery January 14, 2025 Height/Weight Height: 5 ft 6 in Weight: 86.8 kg Vital Signs Last Vital Signs Temp 36.7 C 01/14/25 11:22 Pulse 93 H 01/14/25 11:22 Resp 18 01/14/25 11:22 BP 150/68 H 01/14/25 11:22 Pulse Ox 95 01/14/25 11:22 O2 Del Method Room Air 01/14/25 11:22 Allergies Allergy/AdvReac Type Severity Reaction Status Date / Time Penicillins Allergy Unknown RASH long Verified 01/14/25 11:21 ago- tolerating Zosyn Medications Home Medications Medication Instructions Recorded Confirmed Last Taken amlodipine 10 mg tablet 10 mg PO DAILY 01/12/25 01/12/25 01/12/25 chlorthalidone 50 mg tablet 50 mg PO DAILY 01/12/25 01/12/25 01/12/25 losartan 100 mg tablet 100 mg PO DAILY 01/12/25 01/12/25 01/12/25 metoprolol succinate 100 mg 100 mg PO DAILY 01/12/25 01/12/25 01/12/25 tablet,extended release 24 hr potassium chloride 20 mEq 20 meq PO BID 01/12/25 01/12/25 01/12/25 08:00 tablet,extended release(part/cryst) spironolactone 25 mg tablet 25 mg PO DAILY 01/12/25 01/12/25 01/12/25 Active Medications Generic Name Dose Route Start Last Admin Trade Name Rikki PRN Reason Stop Dose Admin Acetaminophen 650 mg 01/13/25 02:26 01/14/25 10:20 Acetaminophen 325 Mg Tab PO 02/12/25 02:25 650 mg Q4H PRN Administration Pain or Fever Amlodipine Besylate 10 mg 01/13/25 09:00 01/14/25 08:44 Amlodipine Besylate 5 Mg Tab PO 02/12/25 08:59 10 mg DAILY CAL Administration Piperacillin Sod/Tazobactam Sod 4.5 gm in 100 mls @ 25 mls/hr 01/13/25 04:00 01/14/25 09:53 Zosyn IV 01/20/25 03:59 Infused Q8H CAL Infusion Protocol Daptomycin 600 mg/ Syringe 12 mls @ 6 mls/min 01/13/25 21:00 01/13/25 21:05 IV 01/20/25 20:59 6 mls/min Q24H CAL Administration Protocol Lactated Ringer's 1,000 mls @ 15 mls/hr 01/14/25 11:30 01/14/25 11:31 Lr IV 01/17/25 11:29 15 mls/hr .Q24H CAL Administration Loratadine 10 mg 01/14/25 09:00 01/14/25 09:27 Loratadine 10 Mg Tab PO 02/13/25 08:59 10 mg QAM CAL Administration Losartan Potassium 100 mg 01/13/25 09:00 01/14/25 08:44 Losartan Potassium 50 Mg Tab PO 02/12/25 08:59 100 mg DAILY CAL Administration Metoprolol Succinate 100 mg 01/13/25 09:00 01/14/25 08:43 Metoprolol Succ 50mg Ext Rel Tab PO 02/12/25 08:59 100 mg DAILY CAL Administration Potassium Chloride 40 meq 01/13/25 10:45 01/14/25 08:41 Potassium Chloride Crtab 20 Meq Tabcr PO 02/12/25 10:44 40 meq BID CAL Administration Silver Sulfadiazine 1 appln 01/14/25 01:15 01/14/25 09:27 Silver Sulfadiazine 1% Cr 400 Gm Jar EXT 02/13/25 01:14 1 appln BID CAL Administration Spironolactone 25 mg 01/13/25 09:00 01/14/25 08:42 Spironolactone 25 Mg Tab PO 02/12/25 08:59 25 mg DAILY CAL Administration Past Anesthesia History No Hx of Anesthesia Complications and No Family Hx of Anesthesia Complications History of PONV No Hx of PONV and No Hx of Motion Sickness NPO Date Last Intake of Fluids: 01/13/25 Time Last Intake of Fluids: 23:00 Date Last Intake of Solids: 01/13/25 Time Last Intake of Solids: 22:00 Home Medications Home Medications Medication Instructions Recorded Confirmed Last Taken amlodipine 10 mg tablet 10 mg PO DAILY 01/12/25 01/12/25 01/12/25 chlorthalidone 50 mg tablet 50 mg PO DAILY 01/12/25 01/12/25 01/12/25 losartan 100 mg tablet 100 mg PO DAILY 01/12/25 01/12/25 01/12/25 metoprolol succinate 100 mg 100 mg PO DAILY 01/12/25 01/12/25 01/12/25 tablet,extended release 24 hr potassium chloride 20 mEq 20 meq PO BID 01/12/25 01/12/25 01/12/25 08:00 tablet,extended release(part/cryst) spironolactone 25 mg tablet 25 mg PO DAILY 01/12/25 01/12/25 01/12/25 Active Medications Generic Name Dose Route Start Last Admin Trade Name Freq PRN Reason Stop Dose Admin Acetaminophen 650 mg 01/13/25 02:26 01/14/25 10:20 Acetaminophen 325 Mg Tab PO 02/12/25 02:25 650 mg Q4H PRN Administration Pain or Fever Amlodipine Besylate 10 mg 01/13/25 09:00 01/14/25 08:44 Amlodipine Besylate 5 Mg Tab PO 02/12/25 08:59 10 mg DAILY CAL Administration Piperacillin Sod/Tazobactam Sod 4.5 gm in 100 mls @ 25 mls/hr 01/13/25 04:00 01/14/25 09:53 Zosyn IV 01/20/25 03:59 Infused Q8H CAL Infusion Protocol Daptomycin 600 mg/ Syringe 12 mls @ 6 mls/min 01/13/25 21:00 01/13/25 21:05 IV 01/20/25 20:59 6 mls/min Q24H CAL Administration Protocol Lactated Ringer's 1,000 mls @ 15 mls/hr 01/14/25 11:30 01/14/25 11:31 Lr IV 01/17/25 11:29 15 mls/hr .Q24H CAL Administration Loratadine 10 mg 01/14/25 09:00 01/14/25 09:27 Loratadine 10 Mg Tab PO 02/13/25 08:59 10 mg QAM CAL Administration Losartan Potassium 100 mg 01/13/25 09:00 01/14/25 08:44 Losartan Potassium 50 Mg Tab PO 02/12/25 08:59 100 mg DAILY CAL Administration Metoprolol Succinate 100 mg 01/13/25 09:00 01/14/25 08:43 Metoprolol Succ 50mg Ext Rel Tab PO 02/12/25 08:59 100 mg DAILY CAL Administration Potassium Chloride 40 meq 01/13/25 10:45 01/14/25 08:41 Potassium Chloride Crtab 20 Meq Tabcr PO 02/12/25 10:44 40 meq BID CAL Administration Silver Sulfadiazine 1 appln 01/14/25 01:15 01/14/25 09:27 Silver Sulfadiazine 1% Cr 400 Gm Jar EXT 02/13/25 01:14 1 appln BID CAL Administration Spironolactone 25 mg 01/13/25 09:00 01/14/25 08:42 Spironolactone 25 Mg Tab PO 02/12/25 08:59 25 mg DAILY CAL Administration Exercise / Class Metabolic Activity Metabolic Activity: II 4-5 Yardwork/Stairs/Walk up hill Physical Exam Constitutional: no acute distress Mouth: no dentition abnormality Thyromental Distance: > or= 3.5 Finger Breadths Mallampati Class: III Neck: + visual inspection normal Respiratory: + respiratory effort normal and + clear to auscultation bilaterally; no respiratory distress Cardiovascular: + regular rate and + regular rhythm; no murmur Musculoskeletal: no limited cervical ROM Psychiatric: + alert and + oriented x 3 ASA ASA2 Proposed Anesthesia Proposed Anesthesia: General Risk / Benefits Reviewed With: PT / POA / Parent / Guardian, Accepts Plan and Informed Consent Obtained
[2025-01-14] MEDS ORDERED: ATROPINE SULFATE 0.1 MG/ML 10ML SYR IV PRN (12:01)
[2025-01-14] MEDS ORDERED: PROMETHAZINE HCL 6.25 MG in SODIUM CHLORIDE 0.9% 50 ML IV PRN (12:01)
--- NOTE | 2025-01-14 12:12 | Podiatry Consultation ---
Date of Consultation January 14, 2025 Assessment & Plan (1) Leg wound, left: Encounter type: initial encounter Qualified Code(s): S81.802A - Unspecified open wound, left lower leg, initial encounter (2) Maggot infestation: (3) Sepsis: Plan 74-year-old female with large geographic posterior left leg wound secondary soft tissue infection. Significant necrotic tissue to the base with exposed Achilles tendon and superficial venous structures. Patient would benefit from or based debridement to thoroughly clean the wound bed of necrotic tissue. No plan for application of wound VAC following debridement in the operating room. Discussed procedure with patient at length and she is in agreement that surgical debridement of the wound with a wound VAC placement would be in her best interest. She does have experience with a similar wound on the right lower extremity which required surgical debridement and wound VAC placement for closure. - Reviewed noninvasive vascular studies with patient she is aware that consult for vascular surgery will be placed to evaluate. - Discussed risks, benefits, alternatives and risks to the alternatives for surgical debridement of left leg wound. All questions answered. Written informed consent signed by patient and witnessed. Thank you for consulting podiatry to aid in the care of this patient. Will continue to follow patient while she remains in house and consult wound care to aid in wound VAC dressing changes. Following discharge patient would benefit from close follow-up in the wound care center for weekly dressing changes and home health care for home VAC dressing changes she continues to recover from left posterior leg wound. History of Present Illness Reason for Consultation: Left posterior leg wound Attending Physician: Blake Clancy MD History of Present Illness 74-year-old female with past medical history significant for hypertension, hypokalemia, right posterior leg venous type wound requiring or based debridement and wound VAC placement as well as skin substitute which went on to heal presents to [facility] emergency department with left posterior leg wound. Reports pain in the Achilles tendon for several months for which she was using a ankle brace which apparently rubbed the posterior leg creating an open wound which became infected. On presentation to the emergency department there was maggot infestation to the wound which is cleansed and dressed. She started on empiric antibiotics. Wound to the posterior aspect of the calf with exposure of the Achilles tendon and some superficial necrosis as well as exposure of superficial venous structures of the wound bed. Necrotic tissue to the periwound soft tissue. Noninvasive vascular studies ordered showing diffuse mild atherosclerotic changes throughout the lower limb arterial system, multiple areas of peak systolic velocity in the peroneal trunk, proximal peroneal artery and mid anterior tibial artery with low velocity monophasic flow noted in the anterior tibial artery consistent with peripheral arterial disease with stenosis significant stenosis in the leg arteries. patient evaluated by Sourav Hernandez of orthopedic surgery who is in agreement that patient would benefit from surgical debridement of the posterior leg wound. Allergies Allergy/AdvReac Type Severity Reaction Status Date / Time Penicillins Allergy Unknown RASH long Verified 01/14/25 11:21 ago- tolerating Zosyn Home Medications Medication Instructions Recorded Confirmed Type amlodipine 10 mg tablet 10 mg PO DAILY 01/12/25 01/12/25 History chlorthalidone 50 mg tablet 50 mg PO DAILY 01/12/25 01/12/25 History losartan 100 mg tablet 100 mg PO DAILY 01/12/25 01/12/25 History metoprolol succinate 100 mg 100 mg PO DAILY 01/12/25 01/12/25 History tablet,extended release 24 hr potassium chloride 20 mEq 20 meq PO BID 01/12/25 01/12/25 History tablet,extended release(part/cryst) spironolactone 25 mg tablet 25 mg PO DAILY 01/12/25 01/12/25 History Patient History Social History Smoking Status: Never smoker Hx Alcohol Use: Yes Hx Substance Use: No Preferred Language: Monegasque Communication Ability: Effective Teller Required: No Beliefs That Will Affect Care: None Current Living Situation: Alone Feels Safe at Home: Yes Assistive Devices: None Review of Systems Review of Systems: Denies nausea, vomiting, fever, chills. Reports pain to the left posterior leg. Physical Exam Physical Exam: Const: Appears well developed and well nourished. No signs of acute distress present. CV: Extremities: No cyanosis or edema. Capillary refill time is less than 2 seconds all digits of the bilateral foot. Posterior tibial and dorsalis pedis pulses are non palpable bilateral. Skin: Chronic venous stasis changes noted to the bilateral lower extremity below the knee. Loss of hair growth bilateral below the knee. Neuro: Sensation intact to light touch in all areas of the foot and ankle. Psych: Mood/Affect: Mood is normal. Affect is normal. Cognition: Orientation is intact to person, place and time. Focused lower extremity musculoskeletal exam: Left leg: No pain with compression of the proximal calf muscle. Large geographic wound to the posterior left leg at the level of the myotendinous junction with exposed Achilles tendon to the wound bed. Exposure of superficial venous structures in the wound bed. Necrotic and slough tissue throughout. Necrotic tissue to the wound borders. Periwound erythema and edema. No lymphangitis or streaking. Pain to palpation of the wound bed. Wound does not appear to tunnel or track in any direction. Moderate serosanguineous drainage to dressing with small areas of purulent dressing noted. Mild odor. No maggots present within the wound bed on evaluation today. Results & Data Vital Signs (Past 12 Hours) Vital Signs Temp Pulse Pulse Resp BP BP Pulse Ox 01/14/25 11:22 36.7 C 93 H 18 150/68 H 95 01/14/25 07:24 37 C 92 H 16 129/61 93 01/14/25 05:42 85 01/14/25 04:09 36.9 C 80 18 156/50 H 96 O2 Del Method 01/14/25 11:22 Room Air 01/14/25 07:24 Room Air 01/14/25 05:42 01/14/25 04:09 Room Air PG Care Time/CCT Total # of Minutes Spent Total Time Spent with Patient: Total time spent is greater than 50% in coordination of care (as documented) at patient's floor/unit and/or counseling patient: Coding Level of Care Code 92539 INT INP/OBS CARE 3/75MIN Diagnoses Wound of left lower extremity, initial encounter S81.802A Encounter type: initial encounter Maggot infestation B87.9 Sepsis A41.9
[2025-01-14] MEDS: GELATIN SPONGE SZ 100 ONE (13:22)
[2025-01-14] MEDS: BUPIVACAINE 0.5 % 5 MG/1 ML MPF 30ML VIAL ONE (13:32)
--- NOTE | 2025-01-14 13:49 | Post Operative Brief Note ---
PG Immediate Post Op with CF Date of Surgery January 14, 2025 Pre & Post Diagnosis Operation Date: 01/14/25 08:20 Pre-Op Diagnosis: left leg wound Post-Op Diagnosis: left leg wound I identified the patient and participated in the time-out.: Yes Procedure Operation Date: 01/14/25 08:20 Actual Procedures p Left Leg Debridement adn Wound Vac Placement(Left) - Olivier Coy DPM Surgeon Olivier Coy DPM Sales Appointment Coordinator none Estimated Blood Loss 20 Findings Consistent with Post-Op Diagnosis Specimens Specimen Description: 1. Left leg soft tissue culture Complications none
[2025-01-14] MEDS: HYDROmorphone INJ 2 MG/ML SYR/VIAL IV PRN (14:05)
--- NOTE | 2025-01-14 16:01 | Anesthesiology Progress Note ---
Date of Service January 14, 2025 Anesthesia Post Procedure Vital Signs Vital Signs: Temp Pulse Pulse Pulse Resp BP BP 01/14/25 14:58 36.5 C 80 16 135/69 01/14/25 14:25 36.7 C 77 12 119/56 L 01/14/25 14:15 76 14 125/54 L 01/14/25 14:05 80 18 140/55 L 01/14/25 13:55 36.8 C 82 16 147/61 H 01/14/25 11:22 36.7 C 93 H 18 150/68 H 01/14/25 07:24 37 C 92 H 16 129/61 01/14/25 05:42 85 01/14/25 05:42 85 01/14/25 04:09 36.9 C 80 18 156/50 H 01/13/25 23:38 99 H 01/13/25 23:35 36.3 C L 87 18 155/73 H 01/13/25 19:49 36.6 C 85 18 149/77 H Pulse Ox O2 Del Method O2 Flow Rate 01/14/25 14:58 94 Nasal Cannula 2 01/14/25 14:25 99 Nasal Cannula 2 01/14/25 14:15 95 Room Air 01/14/25 14:05 98 Room Air 01/14/25 13:55 100 Oxymask 6 01/14/25 11:22 95 Room Air 01/14/25 07:24 93 Room Air 01/14/25 05:42 01/14/25 05:42 01/14/25 04:09 96 Room Air 01/13/25 23:38 01/13/25 23:35 95 Room Air 01/13/25 19:49 95 Room Air Pain Intensity Left Leg: Pain Intensity: 7 Transfer of Care Handoff Completed per policy Notes Mental Status: alert / awake / arousable and participated in evaluation Nausea / Vomiting: adequately controlled Pain: adequately controlled Airway Patency, RR, SpO2: stable & adequate BP & HR: stable & adequate Hydration State: stable & adequate Anesthetic Complications: no major complications apparent and Pt Satisfied with anesthetic care
[2025-01-14] MEDS: ACETAMINOPHEN 1,000 MG/100 ML VIAL IV PRN (20:30)
[2025-01-14] MEDS: FLUTICASONE PROPIONATE NA SPR 16 GM BTL NAE SCH (21:08)
--- NOTE | 2025-01-15 07:19 | Operative Report ---
[facility] Post Operative Report Pre & Post Diagnosis Operation Date: 01/14/25 08:20 Pre-Op Diagnosis: left leg wound Post-Op Diagnosis: left leg wound I identified the patient and participated in the time-out.: Yes Procedure Operation Date: 01/14/25 08:20 Actual Procedures p Left Leg Debridement adn Wound Vac Placement(Left) - Olivier Coy DPM Surgeon Olivier Coy DPM Clinical Project Coordinator none Estimated Blood Loss 20 Findings Consistent with Post-Op Diagnosis Specimens Deep soft tissue culture left leg Drains Standard wound VAC with silver dressing applied at 125 mmHg the left posterior leg wound. Postdebridement measurements 9.5 x 13 x 1.0 centimeters. Total surface area 123.5 cm. Description of Procedure Patient brought the operating room placed on the operating table in the supine position. Following general anesthesia patient is repositioned by myself the nursing and anesthesia team in a right lateral position using a deflatable beanbag positioner with axial roll and all necessary padding of bony prominence in place. Timeout is held confirming correct patient, side, site, procedure with all necessary parties confirming. The left lower extremity is scrubbed prepped and draped in usual aseptic fashion to the level of the knee. Posterior leg wound is evaluated and measured. Wound bed is mixed fascial, granular, fibrotic, tendinous, vascular and necrotic tissue with necrosis to the wound borders which are somewhat scalloped with some undermining circumferentially. There is a small vein which is exposed in total along the lateral aspect of the wound bed which is noted to be necrotic desiccated and friable for approximately 2 inches. Predebridement wound measures 7 x 11 x 0.7 cm. Using a freer elevator to evaluate undermining to the scalloped edges of the wound 15 blade and electrocautery are utilized to saucerized the wound borders to remove any undermining. There is noted that in the undermining areas there is purulent drainage necrotic and fibrotic tissue within the invagination. Versajet instrument with an 8 mm cutting surface at 45 degree angle is utilized to sharply debride necrotic and fibrotic tissue from the wound bed taking care to avoid all vital neural and vascular structures. The superficial venous structure noted in wound description above is debrided as it is necrotic and nonviable. No lumen is identified due to destruction of the vein both at its distal and proximal level of exposure. Achilles tendon exposed within the wound bed is significantly degenerative and debrided to the level of healthy tendon and granulation tissue which is already started to encroach upon the healthy portion of the Achilles tendon. Proximal wound is debrided to the level of healthy fascial and muscular tissue finally the remainder of the wound bed is carefully debrided to level of healthy bleeding granular and subcutaneous tissue. Electrocautery was utilized to achieve hemostasis to any visibly bleeding vessels. Wound is flushed with copious amounts normal sterile saline. A large Gelfoam was placed over the wound bed and held in place for 2 minutes to achieve general hemostasis and to allow for application of wound VAC. Wound is again flushed with normal sterile saline and dried. Standard wound VAC set to 125 mmHg is prepared. Silver GranuFoam is cut to fit the wound bed which postdebridement measures 9.5 x 13 x 1 cm. Wound VAC is interrogated with no leaks or failure. The suction hoses padded with ABD pad x 2 leg dressed with Kerlix and a lightly applied Stu bandage total dressings in place. Patient tolerated the procedure anesthesia well. She is transferred to recovery room with vital signs stable and vascular status intact to all digits of the left foot. Following brief period of postoperative monitoring in the recovery room patient is transferred back to her bed [facility] the [facility] floor for continued medical management, IV antibiotics. Consult placed with wound care to aid in VAC dressing changes every Tuesday. Patient encouraged to elevate the left lower extremity at all times while at rest. No weightbearing restriction. I attest to the content of the Intraoperative Record and any orders documented therein. Any exceptions are noted below.
--- NOTE | 2025-01-15 08:58 | Hospitalist Progress Note ---
Date of Service January 15, 2025 Assessment & Plan (1) Maggot infestation: Plan: 74-year-old female with past medical history significant for hypertension, resistant hypertension, hypokalemia presents with left leg necrotic wound. Patient says initially she had a Achilles tendon of the left leg and she was using brace. In mid of November she noticed a blister and since then she is not using a brace. She says her pain from her Achilles tendinitis is improved. But last few days she did have pain and wound in the left lower extremity distal part in the posterior aspect. Seems patient was using bandages at home. This was not getting better and she came to the ER. In the ER when the wound was cleaned some maggots were seen. Patient states that after wound was cleaned the pain is much improved. She ambulated in the in the ER for the bathroom. Denies any fevers. No chest pain. No shortness of breath. No headaches. No runny nose or sore throat. No cough. Appetite is okay. No nausea. No abdominal pain. Normal bowel and bladder movements as per patient. Patient was admitted for further management to the hospital Infected left leg wound Maggot infestation Sepsis POA Providencia stuartii bacteremia Patient presents to the hospital with left leg wound that developed after using brace on her leg. Found to have maggots Leukocytosis present on admission Lactate elevated on admission; downtrended CT shows subcutaneous edema in the left consistent with cellulitis; cutaneous defect/ulceration in lower calf measuring 4 cm transverse by 9 cm craniocaudal Blood culture from 02/01 cultures positive for Providencia Stuartii; one culture positive for Staphylococcus hominis Wound culture growing Providencia Stuarti; group B strep agalactiae Status post debridement and wound VAC placement by podiatry on 01/14/2025 Continue on Zosyn and Daptomycin; repeat blood culture for tomorrow a.m. Infectious disease consulted for comanagement to direct antibiotic therapy Wound care consult; wound VAC to be changed on Tuesday and Tuesday Case management to set up home kacey and wound vac at home in next few days Hypokalemia- Repleted Hold chlorthalidone Hyponatremia Sodium 127 Likely secondary to chlorthalidone; plan to hold it at discharge given hyponatremia, hypokalemia serum sodium increased to 137; downtrended to 132 after D5 and normalized Resistant hypertension Continue home amlodipine, losartan, metoprolol succinate and spironolactone Holding chlorthalidone with potassium supplements Will monitor DVT prophylaxis heparin Disposition Med/telemetry Full code. Time spent evaluating patient, direct bedside care, chart review, placing orders, interpretation of diagnostic studies, discussion with consultants, patient, and family members, as well as other required patient management activities is 50 minutes Please note the above document was generated using voice recognition software. It may contain grammatical, syntax or spelling errors. Any formal questions or concerns about the content, text or information contained within the body of this dictation should be directly addressed to the provider for clarification (2) Leg wound, left: Admission and Anticipated Discharge Date Admission Date: January 12, 2025 Subjective Patient seen and examined at bedside. Comfortable; not in distress. Denies fever, chills, chest pain, shortness of breath, abdominal pain or urinary symptoms. No significant overnight events Review of Systems Review of Systems: All systems reviewed & are unremarkable except as noted in Subjective Physical Exam Physical Exam: General- Not in distress Head- atraumatic Eyes- PERRL. ENT- oropharynx clear Neck- supple, no JVD. Lungs- clear to auscultation no wheezing or crackles Heart- regular rhythm; no murmur, no gallop. Abdomen- normal bowel sounds, soft, nontender, no distension Extremities- Dressing with wound VAC in place; no soakage. Neuro- alert, oriented PERRL, no facial palsy; no dysarthria; moves extremities Results & Data Results & Data Vital Signs (Past 12 Hours) Vital Signs Temp Pulse Pulse Resp BP Pulse Ox O2 Del Method 01/15/25 08:08 36.4 C L 93 H 18 136/74 97 Room Air 01/15/25 05:50 81 01/15/25 03:07 37.4 C 85 16 112/64 96 Room Air 01/14/25 22:59 36.8 C 84 18 137/69 96 Nasal Cannula 01/14/25 22:25 81 O2 Flow Rate 01/15/25 08:08 01/15/25 05:50 01/15/25 03:07 01/14/25 22:59 1 01/14/25 22:25 (2) Leg wound, left Encounter type: initial encounter Qualified Code(s): S81.802A - Unspecified open wound, left lower leg, initial encounter
[2025-01-15 09:40] LABS: Hematocrit (blood only) 38.1 % (37.0-47.0); Hemoglobin 12.9 g/dl (12.0-16.0); Immature Granulocytes # (auto) 0.12 K/uL (0.01-0.20); Immature Granulocytes % (auto) 0.8 %; Mean Corpuscular Hemoglobin 30.4 pg (25.0-34.0); Mean Corpuscular Volume 89.6 fL (80.0-100.0); Platelet Count 394 K/uL (130-400); RDW Standard Deviation 40.5 fL (36.4-46.3); Red Blood Count 4.25 M/uL (4.20-5.40); White Blood Count 15.89 K/ul (4.8-10.8)
[2025-01-15] MEDS: HEPARIN SOD 5,000 UNIT/0.5 ML VIAL SQ SCH (13:05)
--- NOTE | 2025-01-15 13:56 | Infectious Disease Consult ---
Date of Service January 15, 2025 Telehealth Information I performed this visit using a real-time telehealth connection between my location and the patients location ([facility]). After connecting through interactive tele-video, patient was identified by name and date of and/or wristband check.Patient (or authorized healthcare cordage sales representative) was informed that this was a telemedicine visit and it was being conducted confidentially over secure lines. My office door was closed and no on e else was present in the room with me.Patient (or authorized healthcare cordage sales representative) provided consent to proceed with the visit, expressed an understanding of privacy and security of the telemedicine visit, and gave permission to have a hospital cordage sales representative in the room in order to assist with the visit and to conduct portions of the visit, as needed. I informed the patient (or authorized healthcare cordage sales representative) that I reviewed their record and presented the opportunity for them to ask any questions regarding the visit today. The patient agreed to participate. Assessment & Plan (1) Leg wound, left: Plan: The extensive quality of the wound and secondary infection suggest uncontrolled DM and/or vascular disease. The maggot infestation also goes along with severe neglect. The fact that she did not seek help until 01/12 by going to the ED corroborates this as well. Cultures from the wound show GBS, P stuartii, and some mixed ginger. (2) Bacteremia: Plan: The S hominis is not clinically relevant, but the P stuartii clearly is coming from her leg. Plan 1. Continued surgical debridement and wound care. Her leukocytosis is still high suggesting she may need further debridement. 2. D/C daptomycin 3. OK to continue IV pip-tazo in the hospital. Once she is ready for discharge, we could likely transition her to oral therapy with levaquin 500mg po qd for about 14 days post last debridement. History of Present Illness History of Present Illness Ms. Pham is a 74yo female seen today for evaluation of bacteremia and a significant wound on her leg. She states the wound started as blister on the back of her leg near her achilles from a leg brace. From there it progressed through November and December into early January before she came to the [facility] ED on 01/12/25. She had not seen any care providers for this previously and was not taking any antibiotics. Upon presentation her wound showed significant necrosis along the posterior leg with maggot infestation. Her blood cultures turned positive for Providencia and she was taken to the OR for debridement on 01/14/25. Today she reports feeling better. No fevers. No N/V or diarrhea. No rash. Leg pain well-controlled. Allergies Allergy/AdvReac Type Severity Reaction Status Date / Time Penicillins Allergy Unknown RASH long Verified 01/14/25 11:21 ago- tolerating Zosyn Home Medications Medication Instructions Recorded Confirmed Type amlodipine 10 mg tablet 10 mg PO DAILY 01/12/25 01/12/25 History chlorthalidone 50 mg tablet 50 mg PO DAILY 01/12/25 01/12/25 History losartan 100 mg tablet 100 mg PO DAILY 01/12/25 01/12/25 History metoprolol succinate 100 mg 100 mg PO DAILY 01/12/25 01/12/25 History tablet,extended release 24 hr potassium chloride 20 mEq 20 meq PO BID 01/12/25 01/12/25 History tablet,extended release(part/cryst) spironolactone 25 mg tablet 25 mg PO DAILY 01/12/25 01/12/25 History Patient History Social History Smoking Status: Never smoker Hx Alcohol Use: Yes Hx Substance Use: No Preferred Language: Bangladeshi Communication Ability: Effective Electrical Controls Designer Required: No Beliefs That Will Affect Care: None Current Living Situation: Alone Feels Safe at Home: Yes Assistive Devices: None Review of Systems Gen- No fevers or chills HEENT- No AMAYA or sore throat Resp- No SOB or cough CV- No chest pain GI- No N/V or diarrhea - No dysuria or frequency MSK- Leg pain as per HPI Skin-No rash Neuro- No focal deficit Physical Exam Gen- NAD HEENT- NC AT Resp- Normal respirations on RA MSK- LLE with ACXEwrap and wound VAC Derm- No rash Neuro- Alert and oriented Results & Data Vital Signs (Past 12 Hours) Vital Signs Temp Pulse Pulse Resp BP Pulse Ox O2 Del Method 01/15/25 11:22 36.4 C L 87 18 162/76 H 90 Room Air 01/15/25 11:15 Room Air 01/15/25 08:08 36.4 C L 93 H 18 136/74 97 Room Air 01/15/25 05:50 81 01/15/25 03:07 37.4 C 85 16 112/64 96 Room Air Laboratory Results WBC 15.89 Hgb 12.9 Platelets 394 Creatinine 0.8 BUN 13 Na 137 Blood cultures 8/2 with 2 of 4 bottles P stuartii and 1 of 4 S hominis Wound cultures 8/2 with GBS and P stuartii OR cultures /4 with P stuartii Diagnostic Findings CT LE reviewed: no obvious osteomyelitis or abscess (1) Leg wound, left Encounter type: initial encounter Qualified Code(s): S81.802A - Unspecified open wound, left lower leg, initial encounter
[2025-01-16 07:12] LABS: Hematocrit (blood only) 35.0 % (37.0-47.0); Hemoglobin 11.9 g/dl (12.0-16.0); Immature Granulocytes # (auto) 0.11 K/uL (0.01-0.20); Immature Granulocytes % (auto) 0.8 %; Mean Corpuscular Hemoglobin 30.6 pg (25.0-34.0); Mean Corpuscular Volume 90.0 fL (80.0-100.0); Platelet Count 393 K/uL (130-400); RDW Standard Deviation 40.3 fL (36.4-46.3); Red Blood Count 3.89 M/uL (4.20-5.40); White Blood Count 13.61 K/ul (4.8-10.8)
[2025-01-16 07:33] LABS: Anion Gap 6.0 (3-11); Blood Urea Nitrogen 9.0 mg/dl (6-23); Calcium 8.6 mg/dl (8.6-10.3); Carbon Dioxide 28.0 mmol/L (21-32); Chloride 104.0 mmol/L (98-107); Creatinine Clr Calc Pharmacy 80.0 ml/min; Glucose 103.0 mg/dl (70-99(Fasting)); Potassium 4.0 mmol/L (3.5-5.1); Sodium 138.0 mmol/L (136-145)
[2025-01-16] MEDS: ADVANCED PROBIOTIC 625 MG CAPSULE PO SCH (11:05)
--- NOTE | 2025-01-16 14:55 | Podiatry Progress Note ---
Date of Service January 16, 2025 Assessment & Plan (1) Leg wound, left: (2) Maggot infestation: (3) Cellulitis of left leg without foot: (4) Venous stasis: Plan Postop day 2 status post or based debridement of posterior leg wound and wound VAC placement. - White blood count is trending down albeit slowly. On evaluation of the wound bed today wound bed is primarily granular tissue with some overlying slough and no deep extension or active drainage. Will continue to monitor with continued dressing changes and IV antibiotics. - VAC dressing changed with wound care. Patient did notice significant discomfort on removal of VAC sponge and will plan to premedicate prior to next dressing change should patient remain in house. - VAC dressing is replaced with silver sponge and Adaptic over exposed venous structures set to 125 mmHg continuous suction. Patient will need to be set up with home VAC system for discharge and continue Tuesday wound VAC dressing changes. - Continue to elevate left lower extremity while at rest and avoid pressure to the posterior left calf. - Repeat blood culture 01/16/2025 pending - Intraoperative soft tissue culture growing P stuartii. Patient evaluated by infectious disease with plan to discontinue daptomycin continue IV pip-tazo while in the hospital and will likely transition to Levaquin 500 milligrams p.o. 4 times daily for 14 days postdebridement(debridement of wound 01/14/2025). Thank you for consulting podiatry to aid in the care of this patient. Will continue to follow while she remains in house and make arrangements for follow- up in the wound care center once weekly for continued monitoring and VAC dr perez changes at time of discharge. Patient will require continued wound VAC therapy with dressings Tuesday postdischarge. Will continue antibiotic recommendations as per ID. Admission and Anticipated Discharge Date Admission Date: January 12, 2025 Subjective Patient resting comfortably in hospital bed postop day 2 status post surgical debridement of posterior left leg wound with wound VAC dressing placed. Seen today with Marisela Morfin of wound care for VAC dressing change. She denies nausea, vomiting, fever, chills. Reports little to no pain in the left leg at baseline however she does have reported significant pain with wound VAC dressing removal. Planning for discharge to long-term facility. Review of Systems Review of Systems: Denies nausea, vomiting, fever, chills. Denies shortness of breath or chest pain. Denies pain to the posterior left leg at baseline. She does have pain with any pressure to the area of the wound VAC sponge. Significant pain noted on removal of wound VAC sponge dressing changed today. Physical Exam Physical Exam: Const: Appears well developed and well nourished. No signs of acute distress present. CV: Extremities: No cyanosis or edema. Capillary refill time is less than 2 seconds all digits of the bilateral foot. Posterior tibial and dorsalis pedis pulses are non palpable bilateral. Skin: Chronic venous stasis changes noted to the bilateral lower extremity below the knee. Loss of hair growth bilateral below the knee. Neuro: Sensation intact to light touch in all areas of the foot and ankle. Psych: Mood/Affect: Mood is normal. Affect is normal. Cognition: Orientation is intact to person, place and time. Focused lower extremity musculoskeletal exam: Left leg: Large geographic wound to the posterior left leg status post debridement and wound VAC placement. Wound VAC dressing is removed today for wound cleansing evaluation and replacement. Wound bed is now mixed healthy granular tissue, deep fascia and superficial venous structure laterally noted within the wound bed which is starting to desiccate but will continue to be protected with Adaptic at this point. Overall significant improvement to the general appearance of the wound bed with encouraging new granulation tissue formation over Achilles tendon and fascia. Decreased periwound erythema. No significant edema to the left leg. No active drainage from the wound bed. No odor. Results & Data Results & Data Vital Signs (Past 12 Hours) Vital Signs Temp Pulse Resp BP Pulse Ox O2 Del Method 01/16/25 11:58 36.8 C 82 18 148/73 H 94 Room Air 01/16/25 07:48 36.6 C 76 18 153/73 H 95 Room Air 01/16/25 04:09 36.4 C L 93 H 20 154/78 H 95 Room Air Coding Level of Care Code 36272 SUB INP/OBS CARE 2/35MIN Diagnoses Wound of left lower extremity, initial encounter S81.802A Encounter type: initial encounter Maggot infestation B87.9 Cellulitis of left leg without foot L03.116 Venous stasis I87.8 (1) Leg wound, left Encounter type: initial encounter Qualified Code(s): S81.802A - Unspecified open wound, left lower leg, initial encounter
--- NOTE | 2025-01-16 15:46 | Hospitalist Progress Note ---
Date of Service January 16, 2025 Assessment & Plan (1) Maggot infestation: Plan: 74-year-old female with past medical history significant for hypertension, resistant hypertension, hypokalemia presents with left leg necrotic wound. Patient says initially she had a Achilles tendon of the left leg and she was using brace. In mid of November she noticed a blister and since then she is not using a brace. She says her pain from her Achilles tendinitis is improved. But last few days she did have pain and wound in the left lower extremity distal part in the posterior aspect. Seems patient was using bandages at home. This was not getting better and she came to the ER. In the ER when the wound was cleaned some maggots were seen. Patient states that after wound was cleaned the pain is much improved. She ambulated in the in the ER for the bathroom. Denies any fevers. No chest pain. No shortness of breath. No headaches. No runny nose or sore throat. No cough. Appetite is okay. No nausea. No abdominal pain. Normal bowel and bladder movements as per patient. Patient was admitted for further management to the hospital Infected left leg wound Maggot infestation Sepsis POA Providencia stuartii bacteremia Patient presents to the hospital with left leg wound that developed after using brace on her leg. Found to have maggots Leukocytosis present on admission Lactate elevated on admission; downtrended CT shows subcutaneous edema in the left consistent with cellulitis; cutaneous defect/ulceration in lower calf measuring 4 cm transverse by 9 cm craniocaudal Blood culture from 02/01 cultures positive for Providencia Stuartii; one culture positive for Staphylococcus hominis Wound culture growing Providencia Stuarti; group B strep agalactiae Status post debridement and wound VAC placement by podiatry on 01/14/2025 f/u repeat blood culture 01/16. ID evaled, c/w zosyn while inpatient and to PO levaquin 500mg po qd for about 14 days post last debridement. Wound care consult; wound VAC to be changed on Tuesday and Tuesday Case management to set up home kacey and wound vac at home in next few days f/u w. podiatry on dc. Hypokalemia-Hold chlorthalidone, c/w KCL supplement. Hyponatremia: Sodium 127. Likely secondary to chlorthalidone; plan to hold it at discharge given hyponatremia, hypokalemia. Resolved. Resistant hypertension Continue home amlodipine, losartan, metoprolol succinate and spironolactone Holding chlorthalidone with potassium supplements Will monitor DVT prophylaxis: heparin Disposition: Med/telemetry, DC to rehab in next 1-2 days. Full code. (2) Leg wound, left: Admission and Anticipated Discharge Date Admission Date: January 12, 2025 Subjective Patient seen and examined at bedside. Comfortable; not in distress. Denies fever, chills, chest pain, shortness of breath, abdominal pain or urinary symptoms. No significant overnight events Physical Exam Physical Exam: General- Not in distress Head- atraumatic Eyes- PERRL. ENT- oropharynx clear Neck- supple, no JVD. Lungs- clear to auscultation no wheezing or crackles Heart- regular rhythm; no murmur, no gallop. Abdomen- normal bowel sounds, soft, nontender, no distension Extremities- LLE Dressing with wound VAC in place; no soakage. Neuro- alert, oriented PERRL, no facial palsy; no dysarthria; moves extremities Results & Data Results & Data Vital Signs (Past 12 Hours) Vital Signs Temp Pulse Resp BP Pulse Ox O2 Del Method 01/16/25 14:55 36.6 C 85 20 150/74 H 93 Room Air 01/16/25 11:58 36.8 C 82 18 148/73 H 94 Room Air 01/16/25 07:48 36.6 C 76 18 153/73 H 95 Room Air 01/16/25 04:09 36.4 C L 93 H 20 154/78 H 95 Room Air (2) Leg wound, left Encounter type: initial encounter Qualified Code(s): S81.802A - Unspecified open wound, left lower leg, initial encounter
[2025-01-17 07:29] LABS: Hematocrit (blood only) 35.4 % (37.0-47.0); Hemoglobin 12.0 g/dl (12.0-16.0); Mean Corpuscular Hemoglobin 30.6 pg (25.0-34.0); Mean Corpuscular Volume 90.3 fL (80.0-100.0); Platelet Count 400 K/uL (130-400); RDW Standard Deviation 40.7 fL (36.4-46.3); Red Blood Count 3.92 M/uL (4.20-5.40); White Blood Count 12.47 K/ul (4.8-10.8)
[2025-01-17 07:47] LABS: Anion Gap 5.0 (3-11); Blood Urea Nitrogen 15.0 mg/dl (6-23); Calcium 8.7 mg/dl (8.6-10.3); Carbon Dioxide 29.0 mmol/L (21-32); Chloride 103.0 mmol/L (98-107); Creatinine Clr Calc Pharmacy 66.1 ml/min; Glucose 101.0 mg/dl (70-99(Fasting)); Potassium 4.2 mmol/L (3.5-5.1); Sodium 137.0 mmol/L (136-145)
--- NOTE | 2025-01-17 14:26 | Hospitalist Progress Note ---
Date of Service January 17, 2025 Assessment & Plan (1) Maggot infestation: Plan: 74-year-old female with past medical history significant for hypertension, resistant hypertension, hypokalemia presents with left leg necrotic wound. Patient says initially she had a Achilles tendon of the left leg and she was using brace. In mid of November she noticed a blister and since then she is not using a brace. She says her pain from her Achilles tendinitis is improved. But last few days she did have pain and wound in the left lower extremity distal part in the posterior aspect. Seems patient was using bandages at home. This was not getting better and she came to the ER. In the ER when the wound was cleaned some maggots were seen. Patient states that after wound was cleaned the pain is much improved. She ambulated in the in the ER for the bathroom. Denies any fevers. No chest pain. No shortness of breath. No headaches. No runny nose or sore throat. No cough. Appetite is okay. No nausea. No abdominal pain. Normal bowel and bladder movements as per patient. Patient was admitted for further management to the hospital Infected left leg wound Maggot infestation Sepsis POA Providencia stuartii bacteremia Patient presents to the hospital with left leg wound that developed after using brace on her leg. Found to have maggots Leukocytosis present on admission Lactate elevated on admission; downtrended CT shows subcutaneous edema in the left consistent with cellulitis; cutaneous defect/ulceration in lower calf measuring 4 cm transverse by 9 cm craniocaudal Blood culture from 02/01 cultures positive for Providencia Stuartii; one culture positive for Staphylococcus hominis Wound culture growing Providencia Stuarti; group B strep agalactiae Status post debridement and wound VAC placement by podiatry on 01/14/2025 f/u repeat blood culture 01/16 --[id number]. ID evaled, c/w zosyn while inpatient and to PO levaquin 500mg po qd for about 14 days post last debridement. Wound care consult; wound VAC to be changed on Tuesday and Tuesday Case management to set up home kacey and wound vac at home in next few days f/u w. podiatry on dc. Hypokalemia-Hold chlorthalidone, c/w KCL supplement. Hyponatremia: Sodium 127. Likely secondary to chlorthalidone; plan to hold it at discharge given hyponatremia, hypokalemia. Resolved. Resistant hypertension Continue home amlodipine, losartan, metoprolol succinate and spironolactone Holding chlorthalidone with potassium supplements Will monitor DVT prophylaxis: heparin Disposition: Med/tele, stable for dc to rehab/snf. Full code. (2) Leg wound, left: Admission and Anticipated Discharge Date Admission Date: January 12, 2025 Subjective Patient seen and examined at bedside. Comfortable; not in distress. Denies fever, chills, chest pain, shortness of breath, abdominal pain or urinary symptoms. No significant overnight events Physical Exam Physical Exam: General- Not in distress Head- atraumatic Eyes- PERRL. ENT- oropharynx clear Neck- supple, no JVD. Lungs- clear to auscultation no wheezing or crackles Heart- regular rhythm; no murmur, no gallop. Abdomen- normal bowel sounds, soft, nontender, no distension Extremities- LLE Dressing with wound VAC in place; no soakage. Neuro- alert, oriented PERRL, no facial palsy; no dysarthria; moves extremities Results & Data Results & Data Vital Signs (Past 12 Hours) Vital Signs Temp Pulse Pulse Resp BP Pulse Ox O2 Del Method 01/17/25 11:30 36.6 C 77 20 135/69 96 Room Air 01/17/25 07:42 78 01/17/25 07:38 36.4 C L 74 16 154/71 H 95 Room Air 01/17/25 03:20 36.7 C 86 18 156/74 H 95 Room Air (2) Leg wound, left Encounter type: initial encounter Qualified Code(s): S81.802A - Unspecified open wound, left lower leg, initial encounter
[2025-01-18 04:41] LABS: Hematocrit (blood only) 40.9 % (37.0-47.0); Hemoglobin 13.5 g/dl (12.0-16.0); Mean Corpuscular Hemoglobin 30.1 pg (25.0-34.0); Mean Corpuscular Volume 91.1 fL (80.0-100.0); Platelet Count 453 K/uL (130-400); RDW Standard Deviation 41.2 fL (36.4-46.3); Red Blood Count 4.49 M/uL (4.20-5.40); White Blood Count 12.74 K/ul (4.8-10.8)
[2025-01-18 04:48] LABS: Anion Gap 9.0 (3-11); Calcium 9.2 mg/dl (8.6-10.3); Carbon Dioxide 23.0 mmol/L (21-32); Chloride 104.0 mmol/L (98-107); Potassium 4.7 mmol/L (3.5-5.1); Sodium 136.0 mmol/L (136-145)
[2025-01-18 04:54] LABS: Blood Urea Nitrogen 23.0 mg/dl (6-23); Creatinine Clr Calc Pharmacy 64.4 ml/min; Glucose 98.0 mg/dl (70-99(Fasting))
--- NOTE | 2025-01-18 15:06 | Hospitalist Progress Note ---
Date of Service January 18, 2025 Assessment & Plan (1) Maggot infestation: Plan: 74-year-old female with past medical history significant for hypertension, resistant hypertension, hypokalemia presents with left leg necrotic wound. Patient says initially she had a Achilles tendon of the left leg and she was using brace. In mid of November she noticed a blister and since then she is not using a brace. She says her pain from her Achilles tendinitis is improved. But last few days she did have pain and wound in the left lower extremity distal part in the posterior aspect. Seems patient was using bandages at home. This was not getting better and she came to the ER. In the ER when the wound was cleaned some maggots were seen. Patient states that after wound was cleaned the pain is much improved. She ambulated in the in the ER for the bathroom. Denies any fevers. No chest pain. No shortness of breath. No headaches. No runny nose or sore throat. No cough. Appetite is okay. No nausea. No abdominal pain. Normal bowel and bladder movements as per patient. Patient was admitted for further management to the hospital Infected left leg wound Maggot infestation Sepsis POA Providencia stuartii bacteremia Patient presents to the hospital with left leg wound that developed after using brace on her leg. Found to have maggots Leukocytosis present on admission Lactate elevated on admission; downtrended CT shows subcutaneous edema in the left consistent with cellulitis; cutaneous defect/ulceration in lower calf measuring 4 cm transverse by 9 cm craniocaudal Blood culture from 02/01 cultures positive for Providencia Stuartii; one culture positive for Staphylococcus hominis Wound culture growing Providencia Stuarti; group B strep agalactiae Status post debridement and wound VAC placement by podiatry on 01/14/2025 f/u repeat blood culture 01/16 --NG48H. ID evaled, c/w zosyn while inpatient and to PO levaquin 500mg po qd for about 14 days post last debridement. Wound care consult; wound VAC to be changed on Tuesday and Tuesday Case management to set up home kacey and wound vac at home in next few days f/u w. podiatry on dc. Hypokalemia-Hold chlorthalidone, c/w KCL supplement. Hyponatremia: Sodium 127. Likely secondary to chlorthalidone; plan to hold it at discharge given hyponatremia, hypokalemia. Resolved. Resistant hypertension Continue home amlodipine, losartan, metoprolol succinate and spironolactone Holding chlorthalidone with potassium supplements Will monitor DVT prophylaxis: heparin Disposition: Med/surg, stable for dc to rehab/snf. Full code. (2) Leg wound, left: Admission and Anticipated Discharge Date Admission Date: January 12, 2025 Subjective Patient seen and examined at bedside. Comfortable; not in distress. Denies fever, chills, chest pain, shortness of breath, abdominal pain or urinary symptoms. No significant overnight events Physical Exam Physical Exam: General- Not in distress Head- atraumatic Eyes- PERRL. ENT- oropharynx clear Neck- supple, no JVD. Lungs- clear to auscultation no wheezing or crackles Heart- regular rhythm; no murmur, no gallop. Abdomen- normal bowel sounds, soft, nontender, no distension Extremities- LLE Dressing with wound VAC in place; no soakage. Neuro- alert, oriented PERRL, no facial palsy; no dysarthria; moves extremities Results & Data Results & Data Vital Signs (Past 12 Hours) Vital Signs Temp Pulse Pulse Resp BP BP Pulse Ox 01/18/25 11:26 36.8 C 79 17 147/77 H 93 01/18/25 11:21 79 01/18/25 08:08 36.4 C L 74 17 155/77 H 94 01/18/25 03:51 36.9 C 76 18 175/82 H 96 O2 Del Method 01/18/25 11:26 Room Air 01/18/25 11:21 01/18/25 08:08 Room Air 01/18/25 03:51 Room Air (2) Leg wound, left Encounter type: initial encounter Qualified Code(s): S81.802A - Unspecified open wound, left lower leg, initial encounter
--- NOTE | 2025-01-18 16:27 | Podiatry Progress Note ---
Date of Service January 18, 2025 Assessment & Plan (1) Leg wound, left: (2) Maggot infestation: (3) Cellulitis of left leg without foot: (4) Venous stasis: Plan Postop day 4 status post OR based debridement of posterior leg wound and wound VAC placement. - White blood count is trending down albeit slowly (WBC 12.74). On evaluation of the wound bed today wound bed is primarily granular tissue with some overlying slough and no deep extension or active drainage. Will continue to monitor with continued dressing changes and antibiotic therapy. - VAC dressing left posterior leg changed with wound care. Topical lidocaine applied prior to sponge removal which significantly reduce patient's discomfort with dressing change. - VAC dressing is replaced with silver sponge and Adaptic over exposed venous structures set to 125 mmHg continuous suction. Patient will need to be set up with home VAC system for discharge and continue Tuesday wound VAC dressing changes. - Continue to elevate left lower extremity while at rest and avoid pressure to the posterior left calf. - Repeat blood culture 01/16/2025 with no growth in 48 hours. - Intraoperative soft tissue culture growing P stuartii. Patient evaluated by infectious disease with plan to discontinue daptomycin continue IV pip-tazo while in the hospital and will likely transition to Levaquin 500 milligrams p.o. 4 times daily for 14 days postdebridement(debridement of wound 01/14/2025). - Patient okay for discharge from podiatry standpoint. Will continue to follow while she remains in house and make arrangements for follow-up in the wound care center once weekly for continued monitoring and VAC dressing changes at time of discharge. Patient will require continued wound VAC therapy with dressings Tuesday postdischarge. Will continue antibiotic recommendations as per ID. Admission and Anticipated Discharge Date Admission Date: January 12, 2025 Subjective Patient seen with wound care today resting comfortably in hospital bed. Wound VAC in place to the left posterior leg without malfunction over the past 48 hours. Wound VAC settings to 125 mmHg continuous suction. Patient denies pain to the left leg at baseline with continued discomfort on palpation or pressure to the area of the wound. Review of Systems Review of Systems: Denies nausea, vomiting, fever, chills. Denies shortness of breath or chest pain. Denies pain to the posterior left leg at baseline. She does have pain with any pressure to the area of the wound VAC sponge. Less notable pain with removal of wound VAC sponge today. Physical Exam Physical Exam: Const: Appears well developed and well nourished. No signs of acute distress present. CV: Extremities: No cyanosis or edema. Capillary refill time is less than 2 seconds all digits of the bilateral foot. Posterior tibial and dorsalis pedis pulses are non palpable bilateral. Skin: Chronic venous stasis changes noted to the bilateral lower extremity below the knee. Loss of hair growth bilateral below the knee. Neuro: Sensation intact to light touch in all areas of the foot and ankle. Psych: Mood/Affect: Mood is normal. Affect is normal. Cognition: Orientation is intact to person, place and time. Focused lower extremity musculoskeletal exam: Left leg: Large geographic wound to the posterior left leg status post debridement and wound VAC placement. Wound VAC dressing is removed today for wound cleansing evaluation and replacement. Wound bed is now mixed healthy granular tissue, deep fascia and superficial venous structure laterally noted within the wound bed which is starting to desiccate but will continue to be protected with Adaptic at this point. Dark discolored fibrotic tissue to the proximal wound seen in photo is primarily the result of electrocautery performed intraoperatively for hemostasis. Overall significant improvement to the general appearance of the wound bed with encouraging new granulation tissue formation over Achilles tendon and fascia. Decreased periwound erythema has resolved. No significant edema to the left leg. No active drainage from the wound bed. No odor. Results & Data Results & Data Vital Signs (Past 12 Hours) Vital Signs Temp Pulse Pulse Resp BP Pulse Ox O2 Del Method 01/18/25 16:10 95 H 18 151/80 H 94 Room Air 01/18/25 11:26 36.8 C 79 17 147/77 H 93 Room Air 01/18/25 11:21 79 01/18/25 08:08 36.4 C L 74 17 155/77 H 94 Room Air Diagnostic Findings [facility] [address] [place] [address] / Director: Corrine Sams M.D. Clinical Laboratory Report Name: MIGUEL BROWN Acct: [id number] Status: ADM [place] : 1950 [facility] [place] Date: 01/12/25 Age: 74 Sex: F Dis Date: Loc: [address]/Bed: [facility] Spec: [id number] Collected: 01/14/25-1326 Received: 01/14/25-[address]: Olivier Coy, DP M Copy To: Rupert Slaughter MD Source: Leg,Left OV Order: Ordered: Aer/Virgie Cult/Sm Comments: Comment 1. Left leg soft tissue culture Procedure Result Verified Site Gram Stain Final 01/14/25-1541 Gram Stain Result Moderate WBCs Seen Few Gram Positive Cocci Few Gram Negative Bacilli Aero/Virgie Cult Preliminary 01/18/25-1132 Organism 1 Providencia stuartii Quantity Many Sens Sensitivities to Follow No Anaerobes Isolated No Anaerobes Isolated +MixWound Plus Low Counts of Probable Skin Celeste P stuartii RX M.I.C. --- --------- Amikacin S <=16 Amp/Sul I 16/8 Cefepime S <=2 Cefotaxime S <=2 Cefoxitin S <=8 Ceftriaxone S <=1 Cefuroxime I 8 Ciprofloxacin S <=0.25 Ertapenem S <=0.5 Levofloxacin S <=0.5 Meropenem S <=1 Trimeth/Sulfa S <=0.5/9.5 Pip/Tazo S <=8 S = SENSITIVE I = INTERMEDIATE R = RESISTANT Coding Level of Care Code 02052 SUB INP/OBS CARE 2/35MIN Diagnoses Wound of left lower extremity, initial encounter S81.802A Encounter type: initial encounter Maggot infestation B87.9 Cellulitis of left leg without foot L03.116 Venous stasis I87.8 (1) Leg wound, left Encounter type: initial encounter Qualified Code(s): S81.802A - Unspecified open wound, left lower leg, initial encounter
[2025-01-19 06:15] LABS: Hematocrit (blood only) 36.5 % (37.0-47.0); Hemoglobin 12.3 g/dl (12.0-16.0); Mean Corpuscular Hemoglobin 30.7 pg (25.0-34.0); Mean Corpuscular Volume 91.0 fL (80.0-100.0); Platelet Count 380 K/uL (130-400); RDW Standard Deviation 41.1 fL (36.4-46.3); Red Blood Count 4.01 M/uL (4.20-5.40); White Blood Count 12.29 K/ul (4.8-10.8)
[2025-01-19 06:44] LABS: Anion Gap 7.0 (3-11); Blood Urea Nitrogen 25.0 mg/dl (6-23); Calcium 8.6 mg/dl (8.6-10.3); Carbon Dioxide 27.0 mmol/L (21-32); Chloride 102.0 mmol/L (98-107); Creatinine Clr Calc Pharmacy 66.3 ml/min; Glucose 111.0 mg/dl (70-99(Fasting)); Potassium 4.3 mmol/L (3.5-5.1); Sodium 136.0 mmol/L (136-145)
--- NOTE | 2025-01-19 17:03 | Hospitalist Progress Note ---
Date of Service January 19, 2025 Assessment & Plan (1) Maggot infestation: Plan: 74-year-old female with past medical history significant for hypertension, resistant hypertension, hypokalemia presents with left leg necrotic wound. Patient says initially she had a Achilles tendon of the left leg and she was using brace. In mid of November she noticed a blister and since then she is not using a brace. She says her pain from her Achilles tendinitis is improved. But last few days she did have pain and wound in the left lower extremity distal part in the posterior aspect. Seems patient was using bandages at home. This was not getting better and she came to the ER. In the ER when the wound was cleaned some maggots were seen. Patient states that after wound was cleaned the pain is much improved. She ambulated in the in the ER for the bathroom. Denies any fevers. No chest pain. No shortness of breath. No headaches. No runny nose or sore throat. No cough. Appetite is okay. No nausea. No abdominal pain. Normal bowel and bladder movements as per patient. Patient was admitted for further management to the hospital Infected left leg wound Maggot infestation Sepsis POA Providencia stuartii bacteremia Patient presents to the hospital with left leg wound that developed after using brace on her leg. Found to have maggots Leukocytosis present on admission Lactate elevated on admission; downtrended CT shows subcutaneous edema in the left consistent with cellulitis; cutaneous defect/ulceration in lower calf measuring 4 cm transverse by 9 cm craniocaudal Blood culture from 02/01 cultures positive for Providencia Stuartii; one culture positive for Staphylococcus hominis Wound culture growing Providencia Stuarti; group B strep agalactiae Status post debridement and wound VAC placement by podiatry on 01/14/2025 f/u repeat blood culture 01/16 --NG48H. ID evaled, c/w zosyn while inpatient and to PO levaquin 500mg po qd for about 14 days post last debridement. Wound care consult; wound VAC to be changed on Tuesday and Tuesday Case management to set up home kacey and wound vac at home in next few days f/u w. podiatry on dc. Hypokalemia-Hold chlorthalidone, c/w KCL supplement. Hyponatremia: Sodium 127. Likely secondary to chlorthalidone; plan to hold it at discharge given hyponatremia, hypokalemia. Resolved. Resistant hypertension Continue home amlodipine, losartan, metoprolol succinate and spironolactone Holding chlorthalidone with potassium supplements Will monitor DVT prophylaxis: heparin Disposition: Med/surg, stable for dc to rehab/snf. Full code. (2) Leg wound, left: Admission and Anticipated Discharge Date Admission Date: January 12, 2025 Subjective Patient seen and examined at bedside. Comfortable; not in distress. Denies fever, chills, chest pain, shortness of breath, abdominal pain or urinary symptoms. No significant overnight events Physical Exam Physical Exam: General- Not in distress Head- atraumatic Eyes- PERRL. ENT- oropharynx clear Neck- supple, no JVD. Lungs- clear to auscultation no wheezing or crackles Heart- regular rhythm; no murmur, no gallop. Abdomen- normal bowel sounds, soft, nontender, no distension Extremities- LLE Dressing with wound VAC in place; no soakage. Neuro- alert, oriented PERRL, no facial palsy; no dysarthria; moves extremities Results & Data Results & Data Vital Signs (Past 12 Hours) Vital Signs Temp Pulse Resp BP Pulse Ox O2 Del Method 01/19/25 16:12 36.6 C 79 18 148/72 H 96 Room Air 01/19/25 09:26 36.9 C 70 18 158/65 H 94 Room Air 01/19/25 07:50 Room Air (2) Leg wound, left Encounter type: initial encounter Qualified Code(s): S81.802A - Unspecified open wound, left lower leg, initial encounter
[2025-01-20 06:16] LABS: Hematocrit (blood only) 38.2 % (37.0-47.0); Hemoglobin 12.5 g/dl (12.0-16.0); Mean Corpuscular Hemoglobin 29.8 pg (25.0-34.0); Mean Corpuscular Volume 91.0 fL (80.0-100.0); Platelet Count 352 K/uL (130-400); RDW Standard Deviation 41.8 fL (36.4-46.3); Red Blood Count 4.20 M/uL (4.20-5.40); White Blood Count 11.43 K/ul (4.8-10.8)
[2025-01-20 06:42] LABS: Anion Gap 4.0 (3-11); Blood Urea Nitrogen 27.0 mg/dl (6-23); Calcium 8.8 mg/dl (8.6-10.3); Carbon Dioxide 28.0 mmol/L (21-32); Chloride 103.0 mmol/L (98-107); Creatinine Clr Calc Pharmacy 67.1 ml/min; Glucose 105.0 mg/dl (70-99(Fasting)); Potassium 4.6 mmol/L (3.5-5.1); Sodium 135.0 mmol/L (136-145)
[2025-01-20 07:22] VITALS: RESP 18
--- NOTE | 2025-01-20 15:21 | Hospitalist Progress Note ---
Date of Service January 20, 2025 Assessment & Plan (1) Maggot infestation: Plan: 74-year-old female with past medical history significant for hypertension, resistant hypertension, hypokalemia presents with left leg necrotic wound. Patient says initially she had a Achilles tendon of the left leg and she was using brace. In mid of November she noticed a blister and since then she is not using a brace. She says her pain from her Achilles tendinitis is improved. But last few days she did have pain and wound in the left lower extremity distal part in the posterior aspect. Seems patient was using bandages at home. This was not getting better and she came to the ER. In the ER when the wound was cleaned some maggots were seen. Patient states that after wound was cleaned the pain is much improved. She ambulated in the in the ER for the bathroom. Denies any fevers. No chest pain. No shortness of breath. No headaches. No runny nose or sore throat. No cough. Appetite is okay. No nausea. No abdominal pain. Normal bowel and bladder movements as per patient. Patient was admitted for further management to the hospital Infected left leg wound Maggot infestation Sepsis POA Providencia stuartii bacteremia Patient presents to the hospital with left leg wound that developed after using brace on her leg. Found to have maggots Leukocytosis present on admission Lactate elevated on admission; downtrended CT shows subcutaneous edema in the left consistent with cellulitis; cutaneous defect/ulceration in lower calf measuring 4 cm transverse by 9 cm craniocaudal Blood culture from 02/01 cultures positive for Providencia Stuartii; one culture positive for Staphylococcus hominis Wound culture growing Providencia Stuarti; group B strep agalactiae Status post debridement and wound VAC placement by podiatry on 01/14/2025 f/u repeat blood culture 01/16 --NG48H. ID evaled, c/w zosyn while inpatient and to PO levaquin 500mg po qd for about 14 days post last debridement. Wound care consult; wound VAC to be changed on Tuesday and Tuesday Case management to set up home kacey and wound vac at home in next few days f/u w. podiatry on dc. Hypokalemia-Hold chlorthalidone, c/w KCL supplement. Hyponatremia: Sodium 127. Likely secondary to chlorthalidone; plan to hold it at discharge given hyponatremia, hypokalemia. Resolved. Resistant hypertension Continue home amlodipine, losartan, metoprolol succinate and spironolactone Holding chlorthalidone with potassium supplements Will monitor DVT prophylaxis: heparin Disposition: Med/surg, stable for dc to rehab/snf. Full code. (2) Leg wound, left: Admission and Anticipated Discharge Date Admission Date: January 12, 2025 Subjective Patient seen and examined at bedside. Comfortable; not in distress. Denies fever, chills, chest pain, shortness of breath, abdominal pain or urinary symptoms. No significant overnight events Physical Exam Physical Exam: General- Not in distress Head- atraumatic Eyes- PERRL. ENT- oropharynx clear Neck- supple, no JVD. Lungs- clear to auscultation no wheezing or crackles Heart- regular rhythm; no murmur, no gallop. Abdomen- normal bowel sounds, soft, nontender, no distension Extremities- LLE Dressing with wound VAC in place; no soakage. Neuro- alert, oriented PERRL, no facial palsy; no dysarthria; moves extremities Results & Data Results & Data Vital Signs (Past 12 Hours) Vital Signs Temp Pulse Resp BP Pulse Ox O2 Del Method 01/20/25 08:30 Room Air 01/20/25 07:21 36.8 C 77 18 149/74 H 95 Room Air (2) Leg wound, left Encounter type: initial encounter Qualified Code(s): S81.802A - Unspecified open wound, left lower leg, initial encounter
--- NOTE | 2025-01-21 01:04 | Communication Note ---
Date of Service: January 21, 2025 Patient refusing IV site replacement to facilitate Zosyn due to pending discharge to center care today as per RN. Hold Zosyn Start oral Levaquin intended for discharge as indicated on daytime provider note.
[2025-01-21 07:29] VITALS: O2SAT 95
[2025-01-21 11:03] VITALS: BP 155/71; PULSE 65; TEMP 98.2
[2025-01-21] MEDS: levoFLOXacin 500 MG TAB PO SCH (11:09)
--- NOTE | 2025-01-21 12:22 | Discharge Summary ---
Date of Service January 21, 2025 Admission HPI Per Admitting Provider 74-year-old female with past medical history significant for hypertension, resistant hypertension, hypokalemia presents with left leg necrotic wound. Patient says initially she had a Achilles tendon of the left leg and she was using brace. In mid of November she noticed a blister and since then she is not using a brace. She says her pain from her Achilles tendinitis is improved. But last few days she did have pain and having wound in the left lower extremity distal part in the posterior aspect. Seems patient was using bandages at home. As was not getting better she came to the ER. In the ER when the wound was cleaned some maggots were seen. Patient states that after wound was cleaned the pain is much improved. She ambulated in the in the ER for the bathroom. Denies any fevers. No chest pain. No shortness of breath. No headaches. No runny nose or sore throat. No cough. Appetite is okay. No nausea. No abdominal pain. Normal bowel and bladder movements as per patient. Currently resting comfortably and hemodynamically stable. Past medical history. As mentioned above Past surgical history. Infection of right calf ankle had skin graft from the right thigh. Social history. No smoking. Alcohol rarely. Family history. Mother had leukemia. Father had diabetes. Admission Exam Per Admitting Provider General- Not in distress Head- atraumatic Eyes- PERRL. ENT- oropharynx clear Neck- supple, no JVD. Lungs- clear to auscultation no wheezing or crackles Heart- regular rhythm; no murmur, no gallop. Abdomen- normal bowel sounds, soft, nontender, no distension Extremities- no pretibial edema, Large necrotic wound left distal leg posterior aspect Neuro- alert, oriented PERRL, no facial palsy; no dysarthria; moves extremities Principal Diagnosis Infected left leg wound Maggot infestation Sepsis POA Providencia stuartii bacteremia Discharge Exam General- Not in distress Head- atraumatic Eyes- PERRL. ENT- oropharynx clear Neck- supple, no JVD. Lungs- clear to auscultation no wheezing or crackles Heart- regular rhythm; no murmur, no gallop. Abdomen- normal bowel sounds, soft, nontender, no distension Extremities- LLE Dressing with wound VAC in place; no soakage. Neuro- alert, oriented PERRL, no facial palsy; no dysarthria; moves extremities Discharge Data Allergies Allergy/AdvReac Type Severity Reaction Status Date / Time Penicillins Allergy Unknown RASH long Verified 01/14/25 11:21 ago- tolerating Zosyn Consultations 01/12/25 22:18 ED Decision to Admit Stat 01/13/25 10:47 Consult Orthopedic Surgery Routine 01/14/25 07:00 Consult Podiatry Routine 01/15/25 07:24 Consult Infectious Diseases Routine Procedures Performed Operation Date: 01/14/25 08:20 Actual Procedures p Left Leg Debridement adn Wound Vac Placement(Left) - Olivier Coy DPM Ordered Studies 01/12/25 20:05 CT tib/fib LT w con Stat 01/14/25 US arterial duplex LE LT Routine Hospital Course (1) Maggot infestation: 74-year-old female with past medical history significant for hypertension, resistant hypertension, hypokalemia presents with left leg necrotic wound. Patient says initially she had a Achilles tendon of the left leg and she was using brace. In mid of November she noticed a blister and since then she is not using a brace. She says her pain from her Achilles tendinitis is improved. But last few days she did have pain and wound in the left lower extremity distal part in the posterior aspect. Seems patient was using bandages at home. This was not getting better and she came to the ER. In the ER when the wound was cleaned some maggots were seen. Patient states that after wound was cleaned the pain is much improved. She ambulated in the in the ER for the bathroom. Denies any fevers. No chest pain. No shortness of breath. No headaches. No runny nose or sore throat. No cough. Appetite is okay. No nausea. No abdominal pain. Normal bowel and bladder movements as per patient. Patient was admitted for further management to the hospital Infected left leg wound Maggot infestation Sepsis POA Providencia stuartii bacteremia Patient presents to the hospital with left leg wound that developed after using brace on her leg. Found to have maggots Leukocytosis present on admission Lactate elevated on admission; downtrended CT shows subcutaneous edema in the left consistent with cellulitis; cutaneous defect/ulceration in lower calf measuring 4 cm transverse by 9 cm craniocaudal Blood culture from 8/22 cultures positive for Providencia Stuartii; one culture positive for Staphylococcus hominis Wound culture growing Providencia Stuarti; group B strep agalactiae Status post debridement and wound VAC placement by podiatry on 01/14/2025 f/u repeat blood culture 01/16 --NG5D. ID evaled, c/w zosyn while inpatient and to PO levaquin 500mg po qd for about 14 days post last debridement. Wound care consult; wound VAC to be changed on Tuesday and Tuesday Case management to set up home kacey and wound vac at home in next few days f/u w. podiatry on dc. Hypokalemia-Hold chlorthalidone, c/w KCL supplement. Hyponatremia: Sodium 127. Likely secondary to chlorthalidone; plan to hold it at discharge given hyponatremia, hypokalemia. Pt was made aware of this. Resolved. Resistant hypertension Continue home amlodipine, losartan, metoprolol succinate and spironolactone Holding chlorthalidone with potassium supplements Will monitor DVT prophylaxis: heparin Full code. Patient is being discharged to SNF with following instructions at the point of discharge: Follow-up with your primary care physician within a week time and likely you will need labs CBC/CMP/magnesium/phosphorus. You will be discharged on antibiotic to complete the course for 14 days. Follow-up with wound care upon discharge for ongoing wound and wound VAC care. Follow-up with podiatry in 2 to 3 weeks time upon discharge. As discussed at the bedside, your chlorthalidone has been discontinued due to low potassium and low sodium level. Recommend that you measure your blood pressure twice a day to maintain a log to take to your primary care physician for ongoing evaluation/management of your blood pressure. Take your medications as prescribed. Please make sure that you are able to get your medications today by calling your pharmacy before you leave the hospital so that your treatment continuity is not broken. (2) Leg wound, left: Home Health Attestation I certify that this patient is under my care and that I, or a physicians gynecological assistant working with me, had a face to-face encounter that meets the home health [id number] encounter requirements with this patient. The encounter with the patient was in whole, or in part, for the following medical condition, which is the primary reason for home health care (list medical condition): I certify that, based on my findings, the following services are medically necessary home health services: My clinical findings support the need for the above services because: Further, I certify that my clinical findings support that this patient is homebound (i.e. absences from home require considerable and taxing effort and are for medical reasons or [facility] services or infrequently or of short duration when for other reasons) because: Certification for Home Health Services: Based on the above findings, I certify that this patient is confined to the home and needs intermittent fdc care, physical therapy and/or speech therapy or continues to need occupational therapy. The patient is under my care, and I have initiated the establishment of the plan of care. This patient will be followed by a physician who will periodically review the plan of care. Total Time Total Time Spent Total Time Spent (In Minutes): 35 Discharge Plan Discharge Items Patient Disposition: Transfer [facility] Fac Reason For Visit: LEFT LEG WOUND, [place] Discharge Diagnosis: Infected left leg wound Maggot infestation Sepsis POA Providencia stuartii bacteremia Condition on Discharge: Fair Activity: Resume your previous activity Non-emergency contact: Primary Care Provider Call non-emergency contact if: you have any medication questions Follow-up/Referrals: Nancy Guadarrama, [Primary Care Provider] - Diet: Regular Addtl Attending Provider Instructions: Follow-up with your primary care physician within a week time and likely you will need labs CBC/CMP/magnesium/phosphorus. You will be discharged on antibiotic to complete the course for 14 days. Follow-up with wound care upon discharge for ongoing wound and wound VAC care. Follow-up with podiatry in 2 to 3 weeks time upon discharge. As discussed at the bedside, your chlorthalidone has been discontinued due to low potassium and low sodium level. Recommend that you measure your blood pressure twice a day to maintain a log to take to your primary care physician for ongoing evaluation/management of your blood pressure. Take your medications as prescribed. Please make sure that you are able to get your medications today by calling your pharmacy before you leave the hospital so that your treatment continuity is not broken. Pending Studies at Discharge: No Stand-Alone Forms: My [facility] Skilled Items Patient informed of condition?: Yes DNR: No Discharge Level of Care: Skilled Communicable Disease: No Discharge Prognosis: Stable Lines: None Urinary Catheter: No Medications and DC Order Prescriptions: New levofloxacin 500 mg Tablet 500 mg PO DAILY@1100 7 Days Qty: 7 0RF loratadine [Wal-itin] 10 mg Tablet 10 mg PO QAM PRN (Reason: allergic symptoms) Qty: 10 0RF Advanced Probiotic 625 mg (10 billion cell) Capsule 1 cap PO DAILY 7 Days Qty: 7 0RF Continued metoprolol succinate 100 mg tablet extended release 24 hr 100 mg PO DAILY spironolactone 25 mg tablet 25 mg PO DAILY potassium chloride 20 mEq tablet,ER particles/crystals 20 meq PO BID amlodipine 10 mg tablet 10 mg PO DAILY losartan 100 mg tablet 100 mg PO DAILY Discontinued chlorthalidone 50 mg tablet 50 mg PO DAILY Discharge Orders: Discharge Order (Routine); Ordered 01/21/25 Ordered By: Mao Posey Admission Data Admit Date/Time: 01/12/25 23:59 Attending Provider: Mao Posey Admit Provider: Rupert Slaughter Primary Care Provider: Nancy Guadarrama Other Providers: [facility]; Amy Barger at [place]; [facility]; Rupert Slaughter; Sourav Hernandez; Olivier Coy; Nuno Diop; Tita Stanley; Jun Ramirez I.; Niels Calderon II; Dian Chen; Bebeto Blankenship; Jairon Nagy; Shine Cordero
[2025-01-21] MEDS: LIDOCAINE 2% LOCAL 50 ML VIAL ONE (14:35)
[2025-01-21] MEDS ORDERED: LIDOCAINE 2% LOCAL 50 ML VIAL INSTIL ONE (15:06)
== END 2025-01-21 16:06 | DRG 854 ==
LOC: ED 19:48 → SUATTDRO 23:59 → 2N 23:59 → 3E 01-18 17:58